=== PATIENT | female | born 1955 | race Caucasian/White ===

== ENCOUNTER 2018-02-02 09:06 | Outpatient (REF) | payer BC, SELFPAY ==
[2018-02-02 19:39] LABS: HCT 36.5 % (36.0-46.0); HGB 11.9 g/dL (12.0-15.5); Mean Corp. HGB Concentration 32.6 g/dL (32.0-36.0); Mean Corpuscular Hemoglobin 29.7 pg (27.0-33.0); Mean Platelet Volume 10.3 fL (8.0-11.0); Platelet Count 292 x1000/uL (130-400); RBC 4.01 m/cumm (4.00-5.20); RBC Distribution Width 13.8 % (11.7-14.6); White Blood Cell Count 8.58 k/cumm (4.4-10.8)
[2018-02-02 19:52] LABS: Iron 49 ug/dL (50-175)
[2018-02-02 20:03] LABS: ALT 37 U/L (12-78); AST 20 U/L (15-37); Albumin 3.8 g/dL (3.4-5.0); Alkaline Phosphatase 102 U/L (46-116); Anion Gap 9.9 mmol/L (3-11); BUN 31 mg/dL (7-18); Bilirubin, Total 0.8 mg/dL (0.2-1.0); CO2 24.1 mmol/L (21.0-32.0); CREATININE 1.04 mg/dL (0.55-1.02); Calcium 8.6 mg/dL (8.5-10.1); Chloride 107 mmol/L (98-107); Estimated GFR 53.35 (mL/min/1.73m2); Ferritin 69 ng/mL (8-388); Glucose 109 mg/dL (70-100); Sodium 141 mmol/L (136-145); Total Protein 6.8 g/dL (6.4-8.2)
== END 2018-02-02 09:26 ==
LOC: NCHCN 09:06
PROVIDERS: PCP Nurse Practitioner Family; Visit Provider Nurse Practitioner Family
DX: D64.9 Anemia, unspecified (principal); N17.9 Acute kidney failure, unspecified
CPT/HCPCS: 80053; 85027; 82728; 83540

== ENCOUNTER 2018-05-14 10:22 | Outpatient (REF) | payer MEDICARE, BC, SELFPAY ==
[2018-05-14 18:57] LABS: Iron 58 ug/dL (50-175)
[2018-05-14 19:10] LABS: ALT 30 U/L (12-78); AST 15 U/L (15-37); Anion Gap 11.5 mmol/L (3-11); BUN 31 mg/dL (7-18); CO2 23.5 mmol/L (21.0-32.0); Calcium 8.7 mg/dL (8.5-10.1); Chloride 107 mmol/L (98-107); Estimated GFR 49.85 (mL/min/1.73m2); Ferritin 45 ng/mL (8-388); Glucose 87 mg/dL (70-100); Potassium 4.5 mmol/L (3.5-5.1); Sodium 142 mmol/L (136-145)
== END 2018-05-14 10:42 ==
LOC: NCHCN 10:22
PROVIDERS: PCP Nurse Practitioner Family; Visit Provider Nurse Practitioner Family
DX: I10 Essential (primary) hypertension (principal); E78.5 Hyperlipidemia, unspecified; D64.9 Anemia, unspecified
CPT/HCPCS: 80048; 82728; 83540; 84450; 84460

== ENCOUNTER 2018-06-01 19:46 | Outpatient (REF) | payer MEDICARE, BC, SELFPAY ==
[2018-06-01 20:24] LABS: Abs Immature Grans 0.02 k/cumm (0.0-0.09); Absolute Basophil Count 0.04 k/cumm (0.0-0.2); Absolute Eosinophil Count 0.21 k/cumm (0.0-0.7); Absolute Lymphocyte Count 1.87 k/cumm (1.2-3.4); Absolute Monocyte Count 0.55 k/cumm (0.11-0.7); Basophils % 0.5; Eosinophils % 2.8; HCT 40.1 % (36.0-46.0); HGB 13.4 g/dL (12.0-15.5); Immature Grans % 0.3; Mean Corp. HGB Concentration 33.4 g/dL (32.0-36.0); Mean Corpuscular Hemoglobin 31.1 pg (27.0-33.0); Mean Platelet Volume 10.6 fL (8.0-11.0); Monocytes % 7.3; Neutrophils % 64.1; Platelet Count 223 x1000/uL (130-400); RBC 4.31 m/cumm (4.00-5.20); RBC Distribution Width 14.1 % (11.7-14.6); White Blood Cell Count 7.49 k/cumm (4.4-10.8)
[2018-06-01 20:26] LABS: Iron 131 ug/dL (50-175); PROTEIN 17.3 mg/dL
[2018-06-01 20:31] LABS: Creatine Kinase 165 U/L (26-192)
[2018-06-01 20:32] LABS: COMMENT (LAB VIEW ONLY) 105.65 mg/dL; Prot/Crea Ur Ratio 0.16; Troponin I < 0.02 ng/mL (0.00-0.06)
[2018-06-01 20:33] LABS: Microalb ug/mg Crea 5.9 ug/mg Cr
== END 2018-06-01 20:06 ==
LOC: NCHCN 19:46
PROVIDERS: PCP Nurse Practitioner Family; Visit Provider Nurse Practitioner Family
DX: D64.9 Anemia, unspecified (principal); R07.89 Other chest pain; N17.9 Acute kidney failure, unspecified
CPT/HCPCS: 82550; 82043; 82565; 82570; 83540; 84156; 84484; 85025

== ENCOUNTER 2019-03-10 10:04 | Outpatient (REF) | payer MEDICARE, BC, SELFPAY ==
[2019-03-10 20:26] LABS: Anion Gap 15.9 mmol/L (3-11); BUN 50 mg/dL (7-18); CO2 24.1 mmol/L (21.0-32.0); CREATININE 1.49 mg/dL (0.55-1.02); Calculated LDL 102 mg/dL; Chloride 105 mmol/L (98-107); Cholesterol 179 mg/dL (50-200); Estimated GFR 35.01 (mL/min/1.73m2); Glucose 130 mg/dL (70-100); HDL Cholesterol 60 mg/dL (40-60); Potassium 4.3 mmol/L (3.5-5.1); Sodium 145 mmol/L (136-145); Triglyceride 86 mg/dL (30-150)
[2019-03-10 21:37] LABS: Hemoglobin A1C 6.4 % (4.5-6.2)
== END 2019-03-10 10:24 ==
LOC: NCHCN 10:04
PROVIDERS: PCP Nurse Practitioner Family; Visit Provider Nurse Practitioner Family
DX: E78.5 Hyperlipidemia, unspecified (principal); R73.03 Prediabetes; I10 Essential (primary) hypertension
CPT/HCPCS: 80048; 80061; 83036

== ENCOUNTER 2019-03-11 16:27 | Outpatient (REF) | payer MEDICARE, BC, SELFPAY ==
[2019-03-11 18:45] LABS: ALT 38 U/L (14-59); AST 17 U/L (15-37)
== END 2019-03-11 16:47 ==
LOC: NCHCN 16:27
PROVIDERS: PCP Nurse Practitioner Family; Visit Provider Nurse Practitioner Family
DX: E78.5 Hyperlipidemia, unspecified (principal)
CPT/HCPCS: 84450; 84460

== ENCOUNTER 2019-08-23 15:04 | Outpatient (REF) | payer MEDICARE, BC, SELFPAY ==
[2019-08-23 19:43] LABS: HCT 41.6 % (36.0-46.0); HGB 14.1 g/dL (12.0-15.5); Mean Corp. HGB Concentration 33.9 g/dL (32.0-36.0); Mean Corpuscular Hemoglobin 31.2 pg (27.0-33.0); Mean Platelet Volume 10.7 fL (8.0-11.0); Platelet Count 252 x1000/uL (130-400); RBC 4.52 m/cumm (4.00-5.20); RBC Distribution Width 12.5 % (11.7-14.6); White Blood Cell Count 7.91 k/cumm (4.4-10.8)
[2019-08-23 19:55] LABS: ALT 31 U/L (14-59); AST 21 U/L (15-37); Albumin 4.2 g/dL (3.4-5.0); Alkaline Phosphatase 99 U/L (46-116); Anion Gap 10.3 mmol/L (3-11); BUN 25 mg/dL (7-18); Bilirubin, Total 0.8 mg/dL (0.2-1.0); C-Reactive Protein 0.51 mg/dL (0.0-0.3); CO2 26.7 mmol/L (21.0-32.0); CREATININE 0.87 mg/dL (0.55-1.02); Chloride 106 mmol/L (98-107); Glucose 106 mg/dL (74-106); Potassium 3.7 mmol/L (3.5-5.1); Sodium 143 mmol/L (136-145); Total Protein 7.4 g/dL (6.4-8.2)
[2019-08-23 20:02] LABS: Hemoglobin A1C 6.2 % (3.8-5.6)
[2019-08-23 20:09] LABS: Calculated LDL 106 mg/dL (<100); Cholesterol 180 mg/dL (<200); HDL Cholesterol 56 mg/dL (40-60); Triglyceride 94 mg/dL (<150)
[2019-08-23 20:45] LABS: ESR 29 mm/hr (0-30)
[2019-08-23 21:22] LABS: Iron 107 ug/dL (50-170); Total Iron Binding Capacity 406 ug/dL (250-450); Transferrin Sat 26 % (15-50)
[2019-08-24 15:59] LABS: Rheumatoid Factor <8.6 IU/mL (<12.0)
== END 2019-08-23 15:24 ==
LOC: NCHCN 15:04
PROVIDERS: PCP Nurse Practitioner Family; Visit Provider Nurse Practitioner Family
DX: D50.9 Iron deficiency anemia, unspecified (principal); E78.5 Hyperlipidemia, unspecified; I10 Essential (primary) hypertension; R73.03 Prediabetes; M12.4 Intermittent hydrarthrosis; M12.849 Other specific arthropathies, not elsewhere classified, unspecified hand
CPT/HCPCS: 80053; 80061; 85027; 85652; 83036; 83540; 83550; 86140; 86431

== ENCOUNTER 2019-12-01 10:08 | Outpatient (REF) | payer MEDICARE, BC, SELFPAY ==
[2019-12-01 22:16] LABS: ALT 21 U/L (14-59); AST 24 U/L (15-37); Albumin 4.2 g/dL (3.4-5.0); Alkaline Phosphatase 97 U/L (46-116); Anion Gap 9.2 mmol/L (3-11); BUN 27 mg/dL (7-18); Bilirubin, Total 0.6 mg/dL (0.2-1.0); CO2 26.8 mmol/L (21.0-32.0); CREATININE 0.77 mg/dL (0.55-1.02); Calcium 9.2 mg/dL (8.5-10.1); Chloride 106 mmol/L (98-107); Glucose 133 mg/dL (74-106); Potassium 4.3 mmol/L (3.5-5.1); Sodium 142 mmol/L (136-145); Total Protein 7.1 g/dL (6.4-8.2)
== END 2019-12-01 10:28 ==
LOC: NCHCN 10:08
PROVIDERS: PCP Nurse Practitioner Family; Visit Provider Nurse Practitioner Family
DX: M12.849 Other specific arthropathies, not elsewhere classified, unspecified hand (principal); I10 Essential (primary) hypertension
CPT/HCPCS: 80053; 86141

== ENCOUNTER 2020-10-10 11:20 | Outpatient (REF) | payer MEDICARE, BC, SELFPAY ==
[2020-10-10 15:03] LABS: Hemoglobin A1C 6.2 % (<5.7)
[2020-10-10 15:38] LABS: ALT 30 U/L (14-59); AST 19 U/L (15-37); Alkaline Phosphatase 106 U/L (46-116); Anion Gap 13.5 mmol/L (3-11); BUN 47 mg/dL (7-18); Bilirubin, Total 0.8 mg/dL (0.2-1.0); CO2 22.5 mmol/L (21.0-32.0); CREATININE 1.4 mg/dL (0.55-1.02); Calcium 8.5 mg/dL (8.5-10.1); Calculated LDL 97 mg/dL (<100); Chloride 107 mmol/L (98-107); Cholesterol 169 mg/dL (<200); Estimated GFR 37.51 (mL/min/1.73m2); Glucose 117 mg/dL (74-106); HDL Cholesterol 64 mg/dL (40-60); Potassium 4.1 mmol/L (3.5-5.1); Sodium 143 mmol/L (136-145); Total Protein 6.9 g/dL (6.4-8.2); Triglyceride 41 mg/dL (<150)
== END 2020-10-10 11:21 | disposition home or self-care (01) ==
LOC: NCHCN 11:20
PROVIDERS: PCP Nurse Practitioner Family; Visit Provider Nurse Practitioner Family
DX: R73.03 Prediabetes (principal); I10 Essential (primary) hypertension; E78.5 Hyperlipidemia, unspecified
CPT/HCPCS: 80053; 80061; 83036

== ENCOUNTER 2021-01-24 16:57 | Outpatient (REF) | payer MEDICARE, BC, SELFPAY | END 2021-01-24 16:58 | disposition home or self-care (01) | LOC: NCHCN 16:57 | PROVIDERS: PCP Nurse Practitioner Family; Visit Provider Nurse Practitioner Family | DX: N39.0 Urinary tract infection, site not specified (principal) | CPT/HCPCS: 87086 ==

== ENCOUNTER 2021-02-01 21:22 | Outpatient (REF) | payer MEDICARE, BC, SELFPAY ==
[2021-02-03 13:54] LABS: COVID-19 RT-PCR UVMMC Result Negative (Negative)
== END 2021-02-01 21:23 | disposition home or self-care (01) ==
LOC: NCHCN 21:22
PROVIDERS: PCP Nurse Practitioner Family; Visit Provider Nurse Practitioner Family
DX: Z20.822 Contact with and (suspected) exposure to COVID-19 (principal); R05 Cough
CPT/HCPCS: U0003

== ENCOUNTER 2021-04-11 16:26 | Outpatient (REF) | payer MEDICARE, BC, SELFPAY ==
[2021-04-11 20:41] LABS: ALT 29 U/L (14-59); AST 18 U/L (15-37); Albumin 4.1 g/dL (3.4-5.0); Alkaline Phosphatase 95 U/L (46-116); Anion Gap 9.2 mmol/L (3-11); BUN 24 mg/dL (7-18); CO2 25.8 mmol/L (21.0-32.0); CREATININE 0.9 mg/dL (0.55-1.02); Chloride 104 mmol/L (98-107); Glucose 112 mg/dL (74-106); Potassium 4.2 mmol/L (3.5-5.1); Sodium 139 mmol/L (136-145); Total Protein 7.1 g/dL (6.4-8.2)
== END 2021-04-11 16:27 | disposition home or self-care (01) ==
LOC: NCHCN 16:26
PROVIDERS: PCP Nurse Practitioner Family; Visit Provider Nurse Practitioner Family
DX: I10 Essential (primary) hypertension (principal)
CPT/HCPCS: 80053

== ENCOUNTER 2021-06-19 13:38 | Outpatient (REF) | payer MEDICARE, BC, SELFPAY ==
[2021-06-21 14:23] LABS: COVID-19 RT-PCR UVMMC Result Negative (Negative)
== END 2021-06-19 13:39 | disposition home or self-care (01) ==
LOC: NCHCN 13:38
PROVIDERS: PCP Nurse Practitioner Family; Visit Provider Nurse Practitioner Family
DX: Z20.822 Contact with and (suspected) exposure to COVID-19 (principal)
CPT/HCPCS: U0003

== ENCOUNTER 2021-09-24 09:20 | Outpatient (CLI) | payer MEDICARE, BC, SELFPAY ==
--- NOTE | 2021-09-24 09:15 | RT.EKG_ITS ---
APPROVED REPORT Exam: Resting ECG Reason for Exam: chest pain Patient Location: O HR:73 bpm ECG Measurements Heart Rate 73 AXIS PA 165 P 69 QRSd 145 QRS -1 QT 472 T 131 QTc 521 Conclusion Sinus rhythm...normal P axis, V-rate 50- 99 Left bundle branch block...QRSd>120, broad/notched R
== END 2021-09-24 09:21 | disposition home or self-care (01) ==
LOC: DI.CARD 09:21
PROVIDERS: PCP Nurse Practitioner Family; Visit Provider Internal Medicine Cardiovascular Disease
DX: I25.2 Old myocardial infarction (principal); I50.9 Heart failure, unspecified
CPT/HCPCS: 93010

== ENCOUNTER → 2021-09-24 13:31 | Outpatient (BNVA) | payer MEDICARE, BC, SELFPAY | PROVIDERS: PCP Nurse Practitioner Family; Referring Provider Nurse Practitioner Family; Visit Provider Internal Medicine Cardiovascular Disease | DX: I50.9 Heart failure, unspecified (principal); I10 Essential (primary) hypertension; I25.10 Atherosclerotic heart disease of native coronary artery without angina pectoris; I44.7 Left bundle-branch block, unspecified; I25.2 Old myocardial infarction | CPT/HCPCS: 93005; 99203 ==

== ENCOUNTER 2022-03-13 18:48 | Outpatient (REF) | payer MEDICARE, BC, SELFPAY ==
[2022-03-13 20:54] LABS: ALT 25 U/L (14-59); AST 21 U/L (15-37); Albumin 4.1 g/dL (3.4-5.0); Alkaline Phosphatase 92 U/L (46-116); Anion Gap 11.9 mmol/L (3-11); BUN 54 mg/dL (7-18); Bilirubin, Total 0.6 mg/dL (0.2-1.0); CO2 23.1 mmol/L (21.0-32.0); CREATININE 1.1 mg/dL (0.55-1.02); Calcium 8.6 mg/dL (8.5-10.1); Calculated LDL 85 mg/dL (<100); Chloride 104 mmol/L (98-107); Cholesterol 167 mg/dL (<200); Estimated GFR 54.39 (mL/min/1.73m2); Glucose 115 mg/dL (74-106); HDL Cholesterol 74 mg/dL (40-60); Potassium 3.7 mmol/L (3.5-5.1); Sodium 139 mmol/L (136-145); Total Protein 7.5 g/dL (6.4-8.2); Triglyceride 41 mg/dL (<150)
== END 2022-03-13 18:49 | disposition home or self-care (01) ==
LOC: NCHCN 18:48
PROVIDERS: PCP Nurse Practitioner Family; Visit Provider Nurse Practitioner Family
DX: I10 Essential (primary) hypertension (principal); E78.5 Hyperlipidemia, unspecified
CPT/HCPCS: 80053; 80061

== ENCOUNTER 2022-11-06 16:21 | Outpatient (REF) | payer MEDICARE, BC, SELFPAY ==
[2022-11-06 20:20] LABS: Anion Gap 12.5 mmol/L (3-11); BUN 45 mg/dL (7-18); CO2 23.5 mmol/L (21.0-32.0); CREATININE 1.4 mg/dL (0.55-1.02); Calcium 9.3 mg/dL (8.5-10.1); Chloride 107 mmol/L (98-107); Estimated GFR 40.73 (mL/min/1.73m2); Glucose 117 mg/dL (74-106); Sodium 143 mmol/L (136-145)
== END 2022-11-06 16:22 | disposition home or self-care (01) ==
LOC: NCHCN 16:21
PROVIDERS: PCP Nurse Practitioner Family; Visit Provider Nurse Practitioner Family
DX: E11.65 Type 2 diabetes mellitus with hyperglycemia (principal); R94.4 Abnormal results of kidney function studies
CPT/HCPCS: 80048

== ENCOUNTER 2022-11-20 20:10 | Outpatient (REF) | payer MEDICARE, BC, SELFPAY ==
[2022-11-20 20:53] LABS: Anion Gap 10.4 mmol/L (3-11); BUN 34 mg/dL (7-18); CO2 25.6 mmol/L (21.0-32.0); Calcium 9.4 mg/dL (8.5-10.1); Chloride 105 mmol/L (98-107); Estimated GFR 60.98 (mL/min/1.73m2); Glucose 122 mg/dL (74-106); Potassium 4.8 mmol/L (3.5-5.1); Sodium 141 mmol/L (136-145)
[2022-11-20 20:59] LABS: COMMENT (LAB VIEW ONLY) 28.02 mg/dL; Microalb ug/mg Crea 36.8 ug/mg Cr
== END 2022-11-20 20:11 | disposition home or self-care (01) ==
LOC: NCHCN 20:10
PROVIDERS: PCP Nurse Practitioner Family; Visit Provider Nurse Practitioner Family
DX: N18.31 Chronic kidney disease, stage 3a (principal)
CPT/HCPCS: 80048; 82043; 82570

== ENCOUNTER → 2022-11-28 10:50 | Outpatient (BNVA) | payer MEDICARE, BC, SELFPAY | PROVIDERS: PCP Nurse Practitioner Family; Referring Provider Nurse Practitioner Family; Visit Provider Internal Medicine Cardiovascular Disease | DX: I25.10 Atherosclerotic heart disease of native coronary artery without angina pectoris (principal); I44.7 Left bundle-branch block, unspecified | CPT/HCPCS: 99213 ==

== ENCOUNTER 2023-02-04 11:52 | Outpatient (REF) | payer MEDICARE, BC, SELFPAY ==
[2023-02-04 20:00] LABS: HCT 39.1 % (36.0-46.0); MCH 30.8 pg (27.0-33.0); MCHC 33.2 % (32.0-36.0); MCV 93 fL (80-95); MPV 10.4 fL (8.0-11.0); Platelet Count 248 10^3/uL (130-400); RBC 4.22 10^6/uL (3.93-5.22); RDW 12.2 % (11.7-14.6); RDW-SD 41.8 fL; WBC 6.69 10^3/uL (4.4-10.8)
[2023-02-04 20:15] LABS: Anion Gap 9.3 mmol/L (3-11); BUN 26 mg/dL (7-18); CO2 24.7 mmol/L (21.0-32.0); CREATININE 0.9 mg/dL (0.55-1.02); Calcium 9.4 mg/dL (8.5-10.1); Chloride 105 mmol/L (98-107); Glucose 100 mg/dL (74-106); NT-proBNP 1782 pg/mL (<300); Potassium 4.1 mmol/L (3.5-5.1); Sodium 139 mmol/L (136-145)
[2023-02-05 14:06] LABS: ESR (LRH) 15 mm/hr
== END 2023-02-04 11:53 | disposition home or self-care (01) ==
LOC: NCHCN 11:52
PROVIDERS: PCP Nurse Practitioner Family; Visit Provider Nurse Practitioner Family
DX: R60.0 Localized edema (principal); M60.9 Myositis, unspecified; N18.31 Chronic kidney disease, stage 3a
CPT/HCPCS: 80048; 85027; 85652; 83880; 86140

== ENCOUNTER 2023-02-05 15:23 | Outpatient (REF) | payer MEDICARE, BC, SELFPAY ==
[2023-02-05 21:16] LABS: ALT 29 U/L (14-59); AST 18 U/L (15-37); Albumin 3.9 g/dL (3.4-5.0); Alkaline Phosphatase 103 U/L (46-116); Anion Gap 8.3 mmol/L (3-11); BUN 33 mg/dL (7-18); Bilirubin, Total 0.8 mg/dL (0.2-1.0); CO2 25.7 mmol/L (21.0-32.0); CREATININE 0.9 mg/dL (0.55-1.02); Calcium 9.8 mg/dL (8.5-10.1); Chloride 104 mmol/L (98-107); Glucose 105 mg/dL (74-106); Sodium 138 mmol/L (136-145); Total Protein 7.2 g/dL (6.4-8.2); Troponin I < 50 ng/L (<or=60)
[2023-02-05 21:24] LABS: COMMENT (LAB VIEW ONLY) 68.64 mg/dL; Microalb ug/mg Crea 56.2 ug/mg Cr
== END 2023-02-05 15:24 | disposition home or self-care (01) ==
LOC: NCHCN 15:23
PROVIDERS: PCP Nurse Practitioner Family; Visit Provider Nurse Practitioner Family
DX: R06.02 Shortness of breath (principal); R60.0 Localized edema
CPT/HCPCS: 80053; 82043; 82570; 84484

== ENCOUNTER 2023-05-21 16:29 | Outpatient (REF) | payer MEDICARE, BC, SELFPAY ==
[2023-05-21 20:25] LABS: Calculated LDL 94 mg/dL (<100); Cholesterol 165 mg/dL (<200); HDL Cholesterol 60 mg/dL (40-60); Triglyceride 59 mg/dL (<150)
--- OUTSIDE RECORDS SUMMARY | 2023-05-23 10:48 | XMS_ITS | Continuity of Care Document ---
Author Name Unknown Organization [facility] Address [address] [place] [address] Care Team Providers Care Rn Er Name Role Phone Mary Gaspar Primary Care Physician [phone] [facility] Date(s): 02/18/23 - 02/18/[address] [address] Discharge Disposition: Home or Self Care Attending Physician: Mary Gaspar SVP [employer] SAL[employer] Admitting Physician: Mary Gaspar [employer]P [employer] Referring Physician: Mary Gaspar SVP [employer] Allergies, Adverse Reactions, Alerts Substance Reaction Severity Status atenolol Unknown Active amoxicillin-clavulanate Unknown Acti ve lisinopril Unknown Active thiazide diuretics Unknown Active Assessment and Plan Future Appointments Immunizations Given and Recorded Vaccine Date Status Refusal Reason SARS-CoV-2 (COVID-19) mRNA-1273 vaccine 08/29/20 R ecorded SARS-CoV-2 (COVID-19) mRNA-1273 vaccine 07/13/20 R ecorded tetanus/diphth/pertuss (Tdap) adult/adol 01/15/07 Recorded Medications !-DuoNeb 3 mL, Inhale, QID RT, 0 Refill(s) Start Date: 05/05/22 Status: Ordered albuterol 90 mcg/inh aerosol inhaler 2.5 mg, Inhale, every 2 hr RT, PRN Air Hunger, 0 Refill(s) Start Date: 05/05/22 Status: Ordered amLODIPine 5 mg oral tablet 5 mg = 1 tab, Oral, Daily, 0 Refill(s) Start Date: 05/05/22 Status: Ordered aspirin 81 mg oral delayed release tablet 81 mg = 1 tab, Oral, Daily, 0 Refill(s) Start Date: 10/12/21 Status: Ordered budesonide 0.5 mg/2 mL inhalation suspension 0.5 mg = 2 mL, NEB, BID RT, 0 Refill(s) Start Date: 05/05/22 Status: Ordered Co Q-10 100 mg =, Oral, Daily, 0 Refill(s) Start Date: 10/12/21 Status: Ordered enoxaparin 40 mg/0.4 mL injectable solution 40 mg = 0.4 mL, Subcutaneous, every night at bedtime, 0 Refill(s) Start Date: 05/05/22 Status: Ordered insulin lispro 100 units/mL injectable solution Sensitive Scale, Subcutaneous, QID(ACHS), 0 Refill(s) Start Date: 05/05/22 Status: Ordered ipratropium-albuterol 0.5 mg-2.5 mg/3 mL inhalation solution 3 mL, Inhale, every 4 hr RT, PRN wheezing, 0 Refill(s) Start Date: 05/05/22 Status: Ordered Lantus 100 units/mL subcutaneous solution 10 units =, Subcutaneous, every morning, 0 Refill(s) Start Date: 05/05/22 Status: Ordered LORazepam 0.5 mg oral tablet 0.5 mg = 1 tab, Oral, QID, PRN anxiety, 0 Refill(s) Start Date: 05/05/22 Status: Ordered potassium chloride 20 mEq oral tablet, extended release 20 mEq = 1 tab, Oral, BID, 0 Refill(s) Start Date: 05/05/22 Status: Ordered rosuvastatin 10 mg oral tablet 10 mg = 1 tab, Oral, every night at bedtime, 0 Refill(s) Start Date: 10/12/21 Status: Ordered Senna-Time 8.6 mg oral tablet 17.2 mg = 2 tab, Oral, every night at bedtime, PRN as needed for constipation, 0 Refill(s) Start Date: 10/12/21 Status: Ordered sertraline 25 mg oral tablet 25 mg = 1 tab, Oral, Daily, # 90 tab, 0 Refill(s) Start Date: 05/01/22 Status: Ordered Tamiflu 30 mg oral capsule 30 mg = 1 cap, Oral, Daily, 0 Refill(s) Start Date: 05/05/22 Status: Ordered Vitamin D with Minerals oral tablet 2 tab, Oral, Daily, 0 Refill(s) Start Date: 10/12/21 Status: Ordered Vitamin D3 2000 intl units oral capsule 50 mcg 1 cap, Oral, Daily, # 60 cap, 0 Refill(s) Start Date: 05/01/22 Status: Ordered zolpidem 10 mg oral tablet 10 mg = 1 tab, Oral, every night at bedtime, PRN as needed for sleep, 0 Refill(s) Start Date: 10/12/21 Status: Ordered Problem List Condition Confirmation Course Effective Dates Status H ealth Status Informant Abnormal cytology findings Confirmed Active Anxiety Confirmed 01/13/20 Active CTS (carpal tunnel syndrome) Confirmed Active Diverticular disease of colon Confirmed 01/13/20 Active Gastroesophageal reflux disease Confirmed 01/13/20 Active H/O: poliomyelitis Confirmed 01/13/20 Active Hyperlipidemia Confirmed 01/13/20 Active Hypertensive disorder Confirmed 01/13/20 Active 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 Confirmed 01/13/20 Active Cubital tunnel syndrome Confirmed Active Long-term current use of drug therapy Confirmed Active Low back pain Confirmed Active Muscle weakness Confirmed Active Old myocardial infarction Confirmed 01/13/20 Active Pain in limb Confirmed Active Pain in right arm Confirmed Active 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 Spasm Confirmed Active Procedures Procedure Date Related Diagnosis Body Site Status Colonoscopy through stoma; w ith biopsy, single or multiple 12/13/20 Completed Epiglottidectomy 12/13/20 Complete d gastritis, intact Manolo fundoplication 12/12/20 Completed Repair of vaginal wall prola pse (procedure) 2018 Completed Hernia repair (procedure) 2017 Completed Excision, excessive skin and subcutaneous tissue (includes lipectomy), abdomen (eg, abdominoplasty) (includes umbilical transposition and fascial plication) (List separately in addition to code for primary procedure) 05/05/96 Completed Surgical treatment of ectopi c ; abdominal 05/05/81 C ompleted Anesthesia for cardiac tisha terization including coronary angiography and ventriculography (not to include [place]-Maxi catheter) Completed 1@ [facility] 2Hiatal 2017 @ Social History Social History Type Response Tobacco Current everyday tob acco user Tobacco Use:. 1 pack per day per day. Sex Female Patient Care team information Care Team Personnel Name: HubertMary SVP [employer] SAL[employer] Position: PowerChart View Only Member Role: Primary Care Physician Address: Address: [address] [place] [address]- Care Team Related Persons Name: NATHAN DUTTA Address: Home [address] [place] [phone]
--- OUTSIDE RECORDS SUMMARY | 2023-05-23 10:48 | XMS_ITS | Continuity of Care Document ---
Author Name Unknown Organization [facility] Address [address] [place] [address] Care Team Providers Care Alternative Dispute Resolution Mediator Name Role Phone Mary Gaspar Primary Care Physician [phone] [facility]counter [facility] Date(s): 03/15/22 - 03/15/[address] [address] Discharge Disposition: Home or Self Care Attending Physician: Mary Gaspar DIRECTOR WORKFORCE MANAGEMENT Admitting Physician: Mary Gaspar DIRECTOR WORKFORCE MANAGEMENT Referring Physician: Mary Gaspar DIRECTOR WORKFORCE MANAGEMENT Allergies, Adverse Reactions, Alerts Substance Reaction Severity Status atenolol Unknown Active amoxicillin-clavulanate Unknown Acti ve lisinopril Unknown Active thiazide diuretics Unknown Active Immunizations Given and Recorded Vaccine Date Status Refusal Reason SARS-CoV-2 (COVID-19) mRNA-1273 vaccine 08/29/20 R ecorded SARS-CoV-2 (COVID-19) mRNA-1273 vaccine 07/13/20 R ecorded tetanus/diphth/pertuss (Tdap) adult/adol 01/15/07 Recorded Medications aspirin 81 mg oral delayed release tablet 0 Refill(s) Start Date: 10/12/21 Status: Ordered Co Q-10 0 Refill(s) Start Date: 10/12/21 Status: Ordered Collagen Plus Vitamin C Collagen Plus Vitamin C, Take 3 tabs in am & 3 tabs in pm Start Date: 11/09/21 Status: Ordered cyclobenzaprine 10 mg oral tablet 10 mg = 1 tab, Oral, TID Start Date: 11/09/21 Status: Ordered losartan 100 mg oral tablet 0 Refill(s) Start Date: 10/12/21 Status: Ordered multivitamin adult, oral tablet 0 Refill(s) Start Date: 10/12/21 Status: Ordered Protonix 40 mg oral delayed release tablet 40 mg = 1 tab, Oral, Daily, 0 Refill(s) Start Date: 10/12/21 Status: Ordered rosuvastatin 10 mg oral tablet 0 Refill(s) Start Date: 10/12/21 Status: Ordered Senna-Time 8.6 mg oral tablet 0 Refill(s) Start Date: 10/12/21 Status: Ordered sertraline 50 mg oral tablet 0 Refill(s) Start Date: 10/12/21 Status: Ordered Vitamin D with Minerals oral tablet 0 Refill(s) Start Date: 10/12/21 Status: Ordered zolpidem 10 mg oral tablet 0 Refill(s) Start Date: 10/12/21 Status: Ordered [...] coronary angiography and ventriculography (not to include [place]-Maxi catheter) Completed 1[place] [facility] [place] @ Social History Social History Type Response Sex Female Patient Care team information Care Team Personnel Name: Mary Gaspar DIRECTOR WORKFORCE MANAGEMENT Position: PowerChart View Only Member Role: Primary Care Physician Address: Address: [address] [place] [id number]- Care Team Related Persons Name: NATHAN DUTTA Address: Home [address] [place] [phone]
--- OUTSIDE RECORDS SUMMARY | 2023-05-23 10:48 | XMS_ITS | Continuity of Care Document ---
Author Name Unknown Organization [facility] Address [address] [place] [address] Care Team Providers Care Quality Assurance Representative Name Role Phone Mary Gaspar Primary Care Physician [phone] Encounter [facility] Date(s): 11/07/22 - 11/07/[address] [address] Discharge Disposition: Home or Self Care Attending Physician: Mary Gaspar OVEN BAKER Admitting Physician: Mary Gaspar OVEN BAKER Referring Physician: Mary Gaspar OVEN BAKER Allergies, Adverse Reactions, Alerts Substance Reaction Severity [...] coronary angiography and ventriculography (not to include [place]-Maxi catheter) Completed 1@ [facility] 2Hiatal 2017 @ Social History Social History Type Response Tobacco Current everyday tob acco user Tobacco Use:. 1 pack per day per day. Sex Female Patient Care team information Care Team Personnel Name: Chute, Mary H OVEN BAKER Position: PowerChart View Only Member Role: Primary Care Physician Address: Address: [address] [place] [id number]- Care Team Related Persons Name: NATHAN DUTTA Address: Home [address] [place] [phone]
--- OUTSIDE RECORDS SUMMARY | 2023-05-23 10:48 | XMS_ITS | Continuity of Care Document ---
Author Name Unknown Organization [facility] Address [address] [place] [address] Encounter [facility] [id number] Date(s): 03/14/22 - 03/14/22 [facility] [address] [place], [place] [address] Encounter Diagnosis History of right hip replacement(Discharge Diagnosis) - 03/14/22 Discharge Disposition: Home or Self Care Attending Physician: Donal Leos DO Allergies, Adverse Reactions, Alerts No Known Medication Allergies Assessment and Plan Future Scheduled Tests Radiology* XR Hip 2-3 Views w/AP Pelvis Left 02/22/22 Functional Status 03/14/22 Other exposure to Infectious Disease Non e Medications !-Aspir 81 oral delayed release tablet 81 mg = 1 tab, Oral, Daily, # 30 tab, 0 Refill(s) Start Date: 03/14/22 Status: Ordered CeleBREX 100 mg oral capsule 100 mg = 1 cap, Oral, BID, # 60 cap, 0 Refill(s) Start Date: 03/14/22 Status: Ordered Co-Q10 50 mg oral capsule 50 mg = 1 cap, Oral, Daily, # 30 cap, 0 Refill(s) Start Date: 03/14/22 Status: Ordered Hydrolyzed Ultra Collagen Plus C 10 mg-1000 mg oral tablet 3 tab, Oral, BID, on an empty stomach, # 90 tab, 0 Refill(s) Start Date: 03/14/22 Status: Ordered losartan 50 mg oral tablet 50 mg = 1 tab, Oral, Daily, # 30 tab, 0 Refill(s) Start Date: 03/14/22 Status: Ordered MiraLax oral powder for reconstitution 17 g, Oral, Daily, dissolve in water before taking, # 255 g, 0 Refill(s) Start Date: 03/14/22 Status: Ordered multivitamin adult, oral tablet 1 tab, Oral, Daily, # 30 tab, 0 Refill(s) Start Date: 03/14/22 Status: Ordered pantoprazole 40 mg oral delayed release tablet 40 mg = 1 tab, Oral, BID, # 60 tab, 0 Refill(s) Start Date: 03/14/22 Status: Ordered rosuvastatin 10 mg oral capsule 10 mg = 1 cap, Oral, Daily, # 30 cap, 0 Refill(s) Start Date: 03/14/22 Status: Ordered senna 8.6 mg oral tablet 17.2 mg = 2 tab, Oral, every day at bedtime, PRN as needed for constipation, # 20 tab, 0 Refill(s) Start Date: 03/14/22 Status: Ordered sertraline 25 mg oral tablet 25 mg = 1 tab, Oral, Daily, # 30 tab, 0 Refill(s) Start Date: 03/14/22 Status: Ordered triamterene-hydrochlorothiazide 37.5 mg-25 mg oral tablet 1 tab, Oral, Daily, # 30 tab, 0 Refill(s) Start Date: 03/14/22 Status: Ordered Tylenol Extra Strength 500 mg oral powder 2 packets, Oral, every 6 hr, PRN as needed for fever, # 12 packets, 0 Refill(s) Start Date: 03/14/22 Status: Ordered Vitamin D with Minerals oral tablet 1 tab, Oral, Daily, # 30 tab, 0 Refill(s) Start Date: 03/14/22 Status: Ordered zolpidem 5 mg oral tablet 5 mg = 1 tab, Oral, every day at bedtime, PRN as needed for sleep, 0 Refill(s) Start Date: 03/14/22 Status: Ordered Problem List Condition Confirmation Course Effective Dates Status H ealth Status Informant Arthritis Confirmed Active Hypercholesterolemia Confirmed Active HTN (hypertension) Confirmed Active Procedures Procedure Date Related Diagnosis Body Site Status Arthroplasty of right hip joint 12/03/21 Completed Vital Signs Most recent to oldest [Reference Range]: 1 Blood Pressure [90-140/60-90 mmHg] 160/7 8mmHg *HI* (03/14/22 11:38 AM) Weight 49.90 kg (03/14/22 11:38 AM) Weight Measured (lbs) 110.011 lb (03/14/22 11:38 AM) Height 154.94 cm (03/14/22 11:38 AM) Height/Length Measured (inches) 61 inch (03/14/22 11:38 AM) BSA Measured 1.47 m2 (03/14/22 11:38 AM) Body Mass Index 20.79 kg/m2 (03/14/22 11:38 AM) Social History Social History Type Response Tobacco Current everyday tob acco user Tobacco Use:. Sex Unknown Physician Outpatient Note * Donal Leos, DO: PERFORM Event Display: Office Clinic Note Physician Authored Date: [id number] LUZMARIA CHANDU Aden :1955 Age:67 years Sex:Female Visit Date:03/14/2022 History of Present Illness 3 and half months status post right total hip??that was struggling at the 6-week postop check. 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 ??She states she is finally doingbetter. ??She is now able to??walk??without an assistive device. ??She says she is really noticed im provement over the past 3 weeks. Physical Exam Vitals & Measurements BP:??160/78?? SpO2:??96%?? HT:??154.94??cm?? WT:??49.90??kg?? BMI:??20.79?? Pain Score:??5?? BSA:??1.47?? Care wound nurseOn physical exam she ambulates in the office with a normal gait unassisted accompanied by a friend.?? Healed. ??No signs of infection. ??No femoral sensory nerve palsy.?? Motion free and easy and stable.?? X-rays look good on the [place] system. ??No signs??loosening or settling or periprosthetic fracture. Assessment/Plan 1.??History of right hip replacement??Z96.641 I think this is??coming along reasonably well. ??She certainly is having a more prolonged??and difficult recovery than most.?? Nothing looks bad on physical exam or??on x-ray.?? I would attribute most of this to the post polio syndrome.?? Nevertheless she is improving. ??I have encouraged her to try to increase her activity is much as she will tolerate. ??We spent approximately 20 minutes together with 15 of those 20 minutes direct [id number] counseling discussing this. Problem List/Past Medical History Ongoing Arthritis HTN (hypertension) Hypercholesterolemia Historical No qualifying data Medications !-Aspir 81 oral delayed release tablet, 81 mg= 1 tab, Oral, Daily CeleBREX 100 mg oral capsule, 100 mg= 1 cap, Oral, BID Co-Q10 50 mg oral capsule, 50 mg= 1 cap, Oral, Daily Hydrolyzed Ultra Collagen Plus C 10 mg-1000 mg oral tablet, 3 tab, Oral, BID losartan 50 mg oral tablet, 50 mg= 1 tab, Oral, Daily MiraLax oral powder for reconstitution, 17 g, Oral, Daily multivitamin adult, oral tablet, 1 tab, Oral, Daily pantoprazole 40 mg oral delayed release tablet, 40 mg= 1 tab, Oral, BID rosuvastatin 10 mg oral capsule, 10 mg= 1 cap, Oral, Daily senna 8.6 mg oral tablet, 17.2 mg= 2 tab, Oral, every night at bedtime, PRN sertraline 25 mg oral tablet, 25 mg= 1 tab, Oral, Daily triamterene-hydrochlorothiazide 37.5 mg-25 mg oral tablet, 1 tab, Oral, Daily Tylenol Extra Strength 500 mg oral powder, 2 packets, Oral, every 6 hr, PRN Vitamin D with Minerals oral tablet, 1 tab, Oral, Daily zolpidem 5 mg oral tablet, 5 mg= 1 tab, Oral, every night at bedtime, PRN Allergies No Known Medication Allergies Electronically Signed on 03/14/22 12:10 PM Donal Leos DO
--- OUTSIDE RECORDS SUMMARY | 2023-05-23 10:48 | XMS_ITS | Continuity of Care Document ---
Author Name Unknown Organization [facility] Address [address] [place] [address] Encounter [facility] [id number] Date(s): 02/05/23 - 02/05/23 [facility] [address] [place] [address]- Discharge Disposition: Home or Self Care Attending Physician: CAREY MTZ NP Admitting Physician: CAREY MTZ NP Referring Physician: CAREY MTZ NP Allergies, Adverse Reactions, Alerts No Known Medication Allergies Assessment and Plan Future Scheduled Tests Radiology* XR Hip 2-3 Views w/AP Pelvis Left 02/22/22 Medications !-Aspir 81 oral delayed release tablet [...] Arthroplasty of right hip joint 12/03/21 Completed Results Laboratory List Name Date Sedimentation Rate (ESR) 02/04/23 Most recent to oldest [Reference Range]: 1 ESR, [place] [0-20 mm/hr] 15 mm/hr *NA* (02/04/23 10:46 AM) Social History Social History Type Response Tobacco Current everyday tob acco user Tobacco Use:. Sex Unknown
--- OUTSIDE RECORDS SUMMARY | 2023-05-23 10:48 | XMS_ITS | Continuity of Care Document ---
Author Name Unknown Organization [facility] Address [address] [place] [address] Care Team Providers Care Facialist Name Role Phone WilfridGris riveraMary Lorna Primary Care Physician [phone] [facility] Date[facility] 04/30/22 - 05/05/22 [facility] [address] [place] [address] us Encounter Diagnosis Pneumonia(Discharge Diagnosis) - 05/01/22 Respiratory failure(Discharge Diagnosis) - 05/01/22 Acute kidney injury(Discharge Diagnosis) - 04/30/22 Dehydration, severe(Discharge Diagnosis) - 04/30/22 Hypoxia(Discharge Diagnosis) - 04/30/22 Anxiety(Discharge Diagnosis) - 05/01/22 Hypertensive disorder(Discharge Diagnosis) - 05/01/22 Elevated blood sugar(Discharge Diagnosis) - 05/03/22 Discharge Disposition: Discharge/Transfer to [facility] as Inpt Attending Physician: Annmarie Vargas NP Admitting Physician: Annmarie Vargas [employer]IN [employer]DER Allergies, Adverse Reactions, Alerts Substance Reaction Severity Status atenolol Unknown Active amoxicillin-clavulanate Unknown Acti ve lisinopril Unknown Active thiazide diuretics Unknown Active Assessment and Plan Diagnostic Tests Pending * 1,1-Zyvq-P-Glucan (Fungitell), S RENO 05/04/22 * Histoplasma Ab, S RENO 05/04/22 * Cryptococcus Ag Titer RENO 05/04/22 * Aspergillus (Galactomannan) Ag, S RENO 05/04/22 * ANCA Vasculitis Panel, S RENO 05/04/22 Functional Status 05/05/22 Breakfast Percent 100 05/04/22 Activity Status ADL Toileting at bedside 05/03/22 ADLs Moderate assistance Personal Care Provided Gown change, Oral care, Partial bath, Lizeth care, Underpad change 05/02/22 Assistive Device None 05/01/22 Living Environment No Living Environmen t Information Available Lives In Multilevel home Lives With Spouse Living Situation Home independently Home Barriers None Patient's Responsibilities Housework, Laundry, Meal preparation, Personal ADL, Shopping Number of Stairs Inside 26 Number of Stairs Outside 4 04/30/22 Family Member Travel History Last travel within 7 days Recent Travel History Last travel within 7 days Other exposure to Infectious Disease COV ID-19 Symptoms Present Immunizations Given and Recorded Vaccine Date Status [...] coronary angiography and ventriculography (not to include [place]-Maxi catheter) Completed @ [facility] 2Hiatal 2017 @ Results Laboratory List Name Date Glucose POCT 05/05/22 Glucose POCT 05/05/22 Basic Metabolic Panel 05/05/22 CBC w/o Diff 05/05/22 Glucose POCT 05/04/22 SARS-CoV-2 (COVID-19) RNA (ID Now) 05/04 Basic Metabolic Panel 05/04/22 C-Reactive Protein High Sensitivity (CRP High Sensitivity (CV Risk)) 05/04/22 CBC w/o Diff 05/04/22 NT- Pro BNP 05/04/22 Blood Gas Arterial (ABG) 05/03/22 Basic Metabolic Panel 05/03/22 C-Reactive Protein High Sensitivity (CRP High Sensitivity (CV Risk)) 05/03/22 CBC w/o Diff 05/03/22 Clostridium Difficile (C Diff) 05/02/22 Fecal Bacterial Pathogens by PCR [facility] Fecal WBC 05/02/22 Ova/Parasite Exam [facility] 05/02/22 C-Reactive Protein High Sensitivity (CRP High Sensitivity (CV Risk)) 05/02/22 NT- Pro BNP 05/02/22 D-Dimer 05/01/22 Troponin-I 05/01/22 Influenza A/B (ID NOW) 05/01/22 Lactic Acid 05/01/22 Urinalysis Microscopic 05/01/22 Urinalysis with Micro if Indicated and C ulture if Indicated 05/01/22 Comprehensive Metabolic Panel (CMP) 04/05 11/23 Magnesium Level 04/30/22 SARS-CoV-2 (COVID-19) RNA (ID Now) 04/30 .Manual Differential (NCTY) 04/30/22 Comprehensive Metabolic Panel 04/30/22 NT- Pro BNP 04/30/22 Most recent to oldest [Reference Range]: 1 2 3 pCO2 Art [33-47 mmHg] 31 mmHg *LOW* (05/03/22 8:57 AM) pH Art [7.35-7.45 pH unit(s)] 7.40 pH unit(s) (05/03/22 8:57 AM) pO2 Art [80-100 mmHg] 70 mmHg *LOW* (05/03/22 8:57 AM) WBC [5.0-10.0 x10^3/mcL] 10.1 x10^3/mcL *HI* (05/05/22 7:25 AM) 10.9 x10^3/mcL *HI* (05/04/22 7:30 AM) 10.4 x10^3/mcL *HI* (05/03/22 6:14 AM) RBC [4.1-5.3 x10^6/mcL] 3.5 x10^6/mcL *LOW* (05/05/22 7:25 AM) 3.4 x10^6/mcL *LOW* (05/04/22 7:30 AM) 3.5 x10^6/mcL *LOW* (05/03/22 6:14 AM) Segs Man [40-75 %] 78 % *HI* (04/30/22 4:18 PM) Lymph Man [20-50 %] 11 % *LOW* (04/30/22 4:18 PM) [place] Man 5 % *NA* (04/30/22 4:18 PM) Eos Man 1 % *NA* (04/30/22 4:18 PM) BUN [7-18 mg/dL] 50 mg/dL *HI* (05/05/22 7:25 AM) 47 mg/dL *HI* (05/04/22 7:30 AM) 39 mg/dL *HI* (05/03/22 6:14 AM) Glucose POC [74-106 mg/dL] 252 mg/dL *HI* (05/05/22 11:28 AM) 197 mg/dL *HI* (05/05/22 7:37 AM) 263 mg/dL *HI* (05/04/22 8:22 PM) UA Color Yellow (05/01/22 1:15 AM) UA WBC [0-3] 0-3 (05/01/22 1:15 AM) Glucose Level [74-106 mg/dL] 196 mg/dL *HI* (05/05/22 7:25 AM) 182 mg/dL *HI* (05/04/22 7:30 AM) 219 mg/dL *HI* (05/03/22 6:14 AM) Potassium Level [3.5-5.1 mmol/L] 3.3 mmol/L *LOW* (05/05/22 7:25 AM) 3.9 mmol/L (05/04/22 7:30 AM) 3.1 mmol/L *LOW* (05/03/22 6:14 AM) MCV [80.0-96.0] 90.4 (05/05/22 7:25 AM) 91.0 (05/04/22 7:30 AM) 88.8 (05/03/22 6:14 AM) UA Urobilinogen Normal (05/01/22 1:15 AM) RBC Morph Normal (04/30/22 4:18 PM) UA Hyal Cast Rare /HPF (05/01/22 1:15 AM) UA Bili [Negative] Negative (05/01/22 1:15 AM) UA Ketones Negative (05/01/22 1:15 AM) AST [15-37 unit/L] 20 unit/L (04/30/22 10:20 PM) 26 unit/L (04/30/22 4:18 PM) ALT [14-59 unit/L] 14 unit/L (04/30/22 10:20 PM) 20 unit/L (04/30/22 4:18 PM) MCHC [31.0-35.0 g/dL] 34.2 g/dL (05/05/22 7:25 AM) 33.9 g/dL (05/04/22 7:30 AM) 34.8 g/dL (05/03/22 6:14 AM) Troponin-I [0.0-51.4 pg/mL] 14.5 pg/mL (05/01/22 5:49 PM) Sodium Level [136-145 mmol/L] 142 mmol/L (05/05/22 7:25 AM) 143 mmol/L (05/04/22 7:30 AM) 141 mmol/L (05/03/22 6:14 AM) UA RBC [0-2] 0-2 (05/01/22 1:15 AM) UA Leuk Est Negative (05/01/22 1:15 AM) UA Nitrite Negative (05/01/22 1:15 AM) UA Glucose [Negative] Negative (05/01/22 1:15 AM) Hct [37.0-47.0 %] 31.9 % *LOW* (05/05/22 7:25 AM) 31.3 % *LOW* (05/04/22 7:30 AM) 31.0 % *LOW* (05/03/22 6:14 AM) UA Bacteria Rare /HPF (05/01/22 1:15 AM) Calcium Level [8.5-10.1 mg/dL] 8.1 mg/dL *LOW* (05/05/22 7:25 AM) 8.7 mg/dL (05/04/22 7:30 AM) 8.6 mg/dL (05/03/22 6:14 AM) Albumin Level [3.4-5.0 g/dL] 2.8 g/dL *LOW* (04/30/22 10:20 PM) 3.3 g/dL *LOW* (04/30/22 4:18 PM) Protein Total [6.4-8.2 g/dL] 6.4 g/dL (04/30/22 10:20 PM) 7.9 g/dL (04/30/22 4:18 PM) UA Protein 1+ *ABN* (05/01/22 1:15 AM) MCH [26.0-32.0 pg] 30.9 pg (05/05/22 7:25 AM) 30.8 pg (05/04/22 7:30 AM) 30.9 pg (05/03/22 6:14 AM) Magnesium Level [1.8-2.4 mg/dL] 1.8 mg/dL (04/30/22 10:20 PM) Bilirubin Total [0.2-1.0 mg/dL] 0.5 mg/dL (04/30/22 10:20 PM) 0.7 mg/dL (04/30/22 4:18 PM) Hgb [12.0-16.0 g/dL] 10.9 g/dL *LOW* (05/05/22 7:25 AM) 10.6 g/dL *LOW* (05/04/22 7:30 AM) 10.8 g/dL *LOW* (05/03/22 6:14 AM) FiO2 Arterial 90 *NA* (05/03/22 8:57 AM) Alk Phos [46-146 unit/L] 67 unit/L (04/30/22 10:20 PM) 83 unit/L (04/30/22 4:18 PM) UA Blood 1+ *ABN* (05/01/22 1:15 AM) CO2 Total Arterial 20 mmol/L *NA* (05/03/22 8:57 AM) UA Mucous None Seen /HPF (05/01/22 1:15 AM) Band Man [0-5 %] 3 % (04/30/22 4:18 PM) UA Spec Grav 1.020 *NA* (05/01/22 1:15 AM) Platelets [130-450 x10^3/mcL] 302 x10^3/mcL (05/05/22 7:25 AM) 271 x10^3/mcL (05/04/22 7:30 AM) 221 x10^3/mcL (05/03/22 6:14 AM) CO2 [21-32 mmol/L] 26 mmol/L (05/05/22 7:25 AM) 23 mmol/L (05/04/22 7:30 AM) 20 mmol/L *LOW* (05/03/22 6:14 AM) Lactic Acid Lvl [0.7-2.1 mmol/L] 0.8 mmol/L (05/01/22 1:30 AM) UA Squam Epithelial [None Seen] Rare (05/01/22 1:15 AM) UA pH 5.5 *NA* (05/01/22 1:15 AM) eGFR Non-AA [>=60] 46 *LOW* (05/05/22 7:25 AM) 45 *LOW* (05/04/22 7:30 AM) 40 *LOW* (05/03/22 6:14 AM) eGFR AA [>=60] 46 *LOW* (05/05/22 7:25 AM) 45 *LOW* (05/04/22 7:30 AM) 40 *LOW* (05/03/22 6:14 AM) Base Excess Arterial -4.6 mmol/L *NA* (05/03/22 8:57 AM) UA Appear Hazy *ABN* (05/01/22 1:15 AM) NT-proBNP [0-125 pg/mL] 5653 pg/mL *HI* (05/04/22 7:30 AM) 5649 pg/mL *HI* (05/02/22 6:22 AM) 675 pg/mL *HI* (04/30/22 4:18 PM) Chloride Level [98-107 mmol/L] 105 mmol/L (05/05/22 7:25 AM) 109 mmol/L *HI* (05/04/22 7:30 AM) 109 mmol/L *HI* (05/03/22 6:14 AM) RDW-CV [11.7-17.0 %] 12.6 % (05/05/22 7:25 AM) 12.9 % (05/04/22 7:30 AM) 12.6 % (05/03/22 6:14 AM) Wesley Test Art Pass (05/03/22 8:57 AM) CRP High Sens [0.00-3.00 mg/L] 67.18 mg/L *HI* (05/04/22 7:30 AM) 182.71 mg/L *HI* (05/03/22 6:14 AM) 281.68 mg/L *HI* (05/02/22 6:22 AM) Puncture Site Right Radial (05/03/22 8:57 AM) UA Culture Ind?. Not Indicated (05/01/22 1:15 AM) Abs Neut Man 8.6 x10^3/mcL *NA* (04/30/22 4:18 PM) Immature Cells 2 *NA* (04/30/22 4:18 PM) [place]-Art Gradient 63 % *NA* (05/03/22 8:57 AM) Clostridium Difficile Toxin [Negative] Negative (05/02/22 2:16 PM) Influenza A -IDNOW Detected *ABN* (05/01/22 1:42 PM) Influenza B -IDNOW Not Detected (05/01/22 1:42 PM) Creatinine Level [0.55-1.02 mg/dL] 1.26 mg/dL *HI* (05/05/22 7:25 AM) 1.28 mg/dL *HI* (05/04/22 7:30 AM) 1.42 mg/dL *HI* (05/03/22 6:14 AM) HCO3 Art 19 mmol/L *NA* (05/03/22 8:57 AM) SARS-CoV-2 (COVID-19) RNA (ID Now) [Not Detected] Not Detected (05/04/22 3:06 PM) Not Detected (04/30/22 4:37 PM) Salmonella PCR [facility] [Negative] Negative *NA* (05/02/22 2:16 PM) Shigella/Enteroinvasive E. coli [facility] [Negative] Negative *NA* (05/02/22 2:16 PM) HN LAB CAMPYLOBACTER PCR [facility] [Negative] Negative *NA* (05/02/22 2:16 PM) Shiga Toxin PCR [facility] [Negative] Negative 1 *NA* (05/02/22 2:16 PM) Parasite Growth [facility] See Footnote 2 *NA* (05/02/22 2:16 PM) Baso Man [0-1 %] 0 % (04/30/22 4:18 PM) D Dimer, (Quant.) [0.00-0.50 mg/L] 3.65 mg/L 3 *NA* (05/01/22 5:49 PM) Source: [facility] stool *NA* (05/02/22 2:16 PM) O2 Sat Art [95-98 %] 95 % (05/03/22 8:57 AM) WBC Fecal [None Seen] Few *ABN* (05/02/22 2:16 PM) 1Result Comment: Test performed [place] [address] 2Result Comment: RESULT: No ova and parasites seen. Source:stool (If Cryptosporidium, Cyclospora, or Microsporidium are suspected, specific tests must be requested.) Single negative specimen does not rule out the possibility of a parasitic infection. Test performed [place] [address] 3Result Comment: wrong entry Orders for Microbiology Reports Name Date Sputum Culture 05/01/22 Blood Culture 05/01/22 Blood Culture 05/01/22 Microbiology Reports TEST:Sputum Culture STATUS:Auth (Verified) BODY SITE: SOURCE:Sputum COLLECTED DATE/TIME:05/01/22 2:11 PM FINAL REPORT Normal Misti at 48 hours STAIN REPORT Moderate Gram Positive Cocci Moderate White Blood Cells Few Gram Negative Cocci Rare epithelial cells TEST:Blood Culture STATUS:Order in Progress BODY SITE: SOURCE:Blood COLLECTED DATE/TIME:05/01/22 1:30 AM PRELIMINARY REPORT No growth at 24 hours. TEST:Blood Culture STATUS:Order in Progress BODY SITE: SOURCE:Blood COLLECTED DATE/TIME:05/01/22 1:25 AM PRELIMINARY REPORT No growth at 24 hours. Vital Signs Most recent to oldest [Reference Range]: 1 2 3 Temperature Temporal Artery [36-38 Deg C] 36.7 Deg C (05/05/22 2:16 PM) 36.5 Deg C (05/05/22 10:19 AM) 36.4 Deg C (05/05/22 6:26 AM) Temperature Temporal Artery (DegF) [97.3-100 Deg F] 98.6 Deg F (05/04/22 9:13 AM) 98.6 Deg F (05/04/22 8:20 AM) 97.88 Deg F (05/04/22 4:00 AM) Peripheral Pulse Rate [60-100 bpm] 75 bpm (05/05/22 2:16 PM) 72 bpm (05/05/22 10:19 AM) 75 bpm (05/05/22 6:26 AM) Heart Rate Monitored [60-100 bpm] 77 bpm (05/05/22 2:51 PM) 74 bpm (05/05/22 10:42 AM) 77 bpm (05/05/22 10:19 AM) Respiratory Rate [12-24 br/min] 20 br/min (05/05/22 2:51 PM) 21 br/min (05/05/22 2:16 PM) 20 br/min (05/05/22 10:42 AM) Blood Pressure [90-140/60-90 mmHg] 130/70mmHg (05/05/22 2:16 PM) 135/72mmHg (05/05/22 10:19 AM) 130/70mmHg (05/05/22 6:26 AM) Mean Arterial Pressure, Cuff [65-140 mmHg] 90 mmHg (05/05/22 2:16 PM) 93 mmHg (05/05/22 10:19 AM) 90 mmHg (05/05/22 6:26 AM) Mean Arterial Pressure Cuff 82 mmHg (05/04/22 6:37 PM) 88 mmHg (05/03/22 2:53 PM) 79 mmHg (05/03/22 11:07 AM) Blood Pressure Location Right arm (05/04/22 11:01 PM) Right arm (05/03/22 2:53 PM) Right arm (05/03/22 8:09 AM) Blood Pressure Method Automatic (05/04/22 11:01 PM) Automatic (05/03/22 2:53 PM) Automatic (05/03/22 8:09 AM) Weight 57.5 kg (05/05/22 10:19 AM) 57.4 kg (05/04/22 12:39 PM) 49.000 kg (04/30/22 8:11 PM) Weight Measured (lbs) 126.545 lb (05/04/22 12:39 PM) Weight Dosing 49.000 kg (04/30/22 7:58 PM) 49.00 kg (04/30/22 3:58 PM) Usual Weight 52 kg (04/30/22 8:11 PM) Weight Estimated 49.00 kg (04/30/22 3:54 PM) Height 155.000 cm (04/30/22 7:58 PM) Height/Length Dosing 155.000 cm (04/30/22 7:58 PM) 155.000 cm (04/30/22 3:58 PM) Body Mass Index 20.400 kg/m2 (04/30/22 7:58 PM) Height/Length Estimated 155.000 cm (04/30/22 3:54 PM) Social History Social History Type Response Tobacco Current everyday tob acco user Tobacco Use:. 1 pack per day per day. Sex Female Hospital Discharge Instructions Patient Education 05/05/2022 14:28:03 Acute Kidney Injury, Adult Acute Kidney Injury, Adult Acute kidney injury is a sudden worsening of kidney function. The kidneys are organs that have several jobs. They filter the blood to remove waste products and extra fluid. They also maintain a healthy balance of minerals and hormones in the body, which helps control blood pressure and keep bones strong. With this condition, your kidneys do not do their jobs as well as they should. This condition ranges from mild to severe. Over time, it may develop into long- lasting (chronic) kidney disease. Early detection and treatment may prevent acute kidney injury from developing into a chronic condition. What are the causes? Common causes of this condition include: ??? A problem with blood flow to the kidneys. This may be caused by: ??? Low blood pressure (hypotension) or shock. ??? Blood loss. ??? Heart and blood vessel (cardiovascular) disease. ??? Severe biswas. ??? Liver disease. ??? Direct damage to the kidneys. This may be caused by: ??? Certain medicines. ??? A kidney infection. ??? Poisoning. ??? Being around or in contact with toxic substances. ??? A surgical wound. ??? A hard, direct hit to the kidney area. ??? A sudden blockage of urine flow. This may be caused by: ??? Cancer. ??? Kidney stones. ??? An enlarged prostate in males. What increases the risk? You are more likely to develop this condition if you: ??? Are older than age 65. ??? Are female. ??? Are hospitalized, especially if you are in critical condition. ??? Have certain conditions, such as: ??? Chronic kidney disease. ??? Diabetes. ??? Coronary artery disease and heart failure. ??? Pulmonary disease. ??? Chronic liver disease. What are the signs or symptoms? Symptoms of this condition may not be obvious until the condition becomes severe. Symptoms of this condition can include: ??? Tiredness (lethargy) or difficulty staying awake. ??? Nausea or vomiting. ??? Swelling (edema) of the face, legs, ankles, or feet. ??? Problems with urination, such as: ??? Pain in the abdomen, or pain along the side of your stomach (flank). ??? Producing little or no urine. ??? Passing urine with a weak flow. ??? Muscle twitches and cramps, especially in the legs. ??? Confusion or trouble concentrating. ??? Loss of appetite. ??? Fever. How is this diagnosed? Your health care provider can diagnose this condition based on your symptoms, medical history, and a physical exam. You may also have other tests, such as: ??? Blood tests. ??? Urine tests. ??? Imaging tests. ??? A test in which a sample of tissue is removed from the kidneys to be examined under a microscope (kidney biopsy). How is this treated? Treatment for this condition depends on the cause and how severe the condition is. In mild cases, treatment may not be needed. The kidneys may heal on their own. In more severe cases, treatment will involve: ??? Treating the cause of the kidney injury. This may involve changing any medicines you are takingor adjusting your dosage. ??? Fluids. You may need specialized IV fluids to balance your body's needs. ??? Having a catheter placed to drain urine and prevent blockages. ??? Preventing problems from occurring. This may mean avoiding certain medicines or procedures thatcan cause further injury to the kidneys. In some cases, treatment may also require: ??? A procedure to remove toxic wastes from the body (dialysis or continuous renal replacement therapy, CRRT). ??? Surgery. This may be done to repair a torn kidney or to remove the blockage from the urinary system. Follow these instructions at home: Medicines ??? Take [id number] and prescription medicines only as told by your health care provider. ??? Do not take any new medicines without your health care provider's approval. Many medicines can worsen your kidney damage. ??? Do not take any vitamin and mineral supplements without your health care provider's approval. Many nutritional supplements can worsen your kidney damage. Lifestyle ??? If your health care provider prescribed changes to your diet, follow them. You may need to decrease the amount of protein you eat. ??? Achieve and maintain a healthy weight. If you need help with this, ask your health care provider. ??? Start or continue an exercise plan. Try to exercise at least 30 minutes a day, 5 days a week. ??? Do not use any products that contain nicotine or tobacco, such as cigarettes, e-cigarettes, andchewing tobacco. If you need help quitting, ask your health care provider. General instructions ??? Keep track of your blood pressure. Report changes in your blood pressure as told by your healthcare provider. ??? Stay up to date with your vaccines. Ask your health care provider which vaccines you need. ??? Keep all follow-up visits as told by your health care provider. This is important. Where to find more information ??? [employer] of Kidney Patients: www.aakp.org ??? National Kidney Foundation: www.kidney.org ??? [employer]: www.akfinc.org ??? [employer] Rehabilitation Program: ??? www.lifeoptions.org ??? www.kidneyschool.org Contact a health care provider if: ??? Your symptoms get worse. ??? You develop new symptoms. Get help right away if: ??? You develop symptoms of worsening kidney disease, which include: ??? Headaches. ??? Abnormally dark or light skin. ??? Easy bruising. ??? Frequent hiccups. ??? Chest pain. ??? Shortness of breath. ??? End of menstruation in women. ??? Seizures. ??? Confusion or altered mental status. ??? Abdominal or back pain. ??? Itchiness. ??? You have a fever. ??? Your body is producing less urine. ??? You have pain or bleeding when you urinate. Summary ??? Acute kidney injury is a sudden worsening of kidney function. ??? Acute kidney injury can be caused by problems with blood flow to the kidneys, direct damage to the kidneys, and sudden blockage of urine flow. ??? Symptoms of this condition may not be obvious until it becomes severe. Symptoms may include edema, lethargy, confusion, nausea or vomiting, and problems passing urine. ??? This condition can be diagnosed with blood tests, urine tests, and imaging tests. Sometimes a kidney biopsy is done to diagnose this condition. ??? Treatment for this condition often involves treating the underlying cause. It is treated with fluids, medicines, diet changes, dialysis, or surgery. This information is not intended to replace advice given to you by your health care provider. Make sure you discuss any questions you have with your health care provider. Document Revised: 02/29/2020 Document Reviewed: 02/29/2020 [employer] Patient Education ?? 2021 [employer]. Follow Up Care 04/30/2022 15:54:08 With:Follow up with primary care provider Address:Unknown When:1 month EKG study * Event Display: Telemetry Strips Please click on link to view image. * Event Display: Telemetry Strips Please click on link to view image. * Event Display: Telemetry Strips Please click on link to view image. Pharmacology Progress note * Christi Hidalgo PharmD: PERFORM Event Display: Pharmacy Progress Note Authored Date: [id number] Pharmacy Progress Note med rec updated with [facility] 05/01/22 JLRoger pharmD Electronically Signed on 05/01/22 11:28 AM Christi Hidalgo PharmD Respiratory therapy Hospital Progress note * Ginger Hernandez: PERFORM Event Display: Respiratory Therapy Progress Note Authored Date: [id number] ??CHANDU DUTTA 67 Years MEASURED Body Mass Index: 20.4 kg/m2 (04/30/22 19:58:00) Height: 155 cm (04/30/22 19:58:00) Weight: 57.4 kg (05/04/22 12:39:00) DOSING Height/Length Dosin cm (04/30/22 19:58:00) Weight Dosin kg (04/30/22 19:58:00) Respiratory Shift Summary Breath Sounds: coarse crackles, wheezing Shift Treatments: Duoneb, budesonide Shift Events: Respiratory Goals/Plan of Care: Wean oxygen as tolerated Respiratory Protocol??Aerosol Therapy Assessment and Scoring Home Medication Routine: Lung History (2) Current smoker greater than 1 pack/day with greater than 15 pack year history and/or diagnosed lung disease Breath Sounds (2) Intermittent wheezes or moderately diminished or crackles greater than 1/3 up back Respiratory Rate (1)??19-25 Modified Chris Scale or Observed Dyspnea (1) 1-2 With exertion Oxygen Therapy (3) Greater than 6 L/min or equivalent or an increase of O2 therapy from baseline by more than 2 L/min or 10% FiO2 Home Respiratory Medications (0) None Inhaler Use Assessment ? Clinically Stable? Yes? Can take a slow deep breath on command? Yes? Can perform a 3 second breath hold? Yes Respiratory total Score: 9 Respiratory Guidelines 5-9 pts - QID scheduled??and Q4 PRN for SOB Electronically Signed on 05/05/22 06:36 AM Ginger Hernandez * Marcello Mejia: PERFORM Event Display: Respiratory Therapy Progress Note Authored Date: ??CHANDU DUTTA 67 Years MEASURED Body Mass Index: 20.4 kg/m2 (04/30/22 19:58:00) Height: 155 cm (04/30/22 19:58:00) Weight: 57.4 kg (05/04/22 12:39:00) DOSING Height/Length Dosin cm (04/30/22 19:58:00) Weight Dosin kg (04/30/22 19:58:00) Respiratory Shift Summary Breath Sounds: Exp Wheeze Shift Treatments: Vapotherm 35L/80%; DuoNeb; Budesonide Shift Events: None Respiratory Goals/Plan of Care: Wean O2 per patient toleration; Breathing Tx's for wheezing and SOB. Respiratory Protocol??Aerosol Therapy Assessment and Scoring Lung History (2) Current smoker greater than 1 pack/day with greater than 15 pack year history and/or diagnosed lung disease Breath Sounds (3)??Severe or diffuse wheezes or very diminished breath sounds or crackles throughout Respiratory Rate (1)??19-25 Modified Chris Scale or Observed Dyspnea (1) 1-2 With exertion Oxygen Therapy (3) Greater than 6 L/min or equivalent or an increase of O2 therapy from baseline by more than 2 L/min or 10% FiO2 Home Respiratory Medications (0) None Inhaler Use Assessment ? Clinically Stable? Yes? Can take a slow deep breath on command? Yes? Can perform a 3 second breath hold? Yes Respiratory total Score: 10 Respiratory Guidelines 10-14 pts - Q4 scheduled and Q2 PRN for SOB Electronically Signed on 05/04/22 10:39 PM Marcello Mejia * Tish Vuong: PERFORM, MODIFY Event Display: Respiratory Therapy Progress Note Authored Date: ??CHANDU DUTTA 67 Years Assessment: crackles on right side and crackles in LLL pt on Vapotherm 35L flow and 85% FiO2, SpO2 95% HR 78 RR 24. Was able to wean O2 to 80% based on O2 sats 97%. Pt comfortable on Vapotherm at this time. Replaced water bag on vapotherm Treatments: duoneb 0720, 1130, 1330 Plan: continue to wean O2 as tolerated, neb tx QID Respiratory Aerosol Therapy Assessment and Scoring Home Medication Routine: Lung History (2) Current smoker greater than 1 pack/day with greater than 15 pack year history and/or diagnosed lung disease Breath Sounds (2) Intermittent wheezes or moderately diminished or crackles greater than 1/3 up back Respiratory Rate (1)??19-25 Modified Chris Scale or Observed Dyspnea (1) 1-2 With exertion Oxygen Therapy (3) Greater than 6 L/min or equivalent or an increase of O2 therapy from baseline by more than 2 L/min or 10% FiO2 Home Respiratory Medications (0) None Inhaler Use Assessment ? Clinically Stable? _? Can take a slow deep breath on command? _? Can perform a 3 second breath hold? _ Respiratory total score: 9 Respiratory Guidelines 5-9 pts - QID scheduled??and Q4 PRN for SOB Electronically Signed on 05/04/22 04:20 PM Tish Vuong Physician Emergency department Note * Nikhil Cortes MD: PERFORM Event Display: ED Note Physician Authored Date: [id number] CHANDU DUTTA :1955 Age:67 years Sex:Female Visit Date:04/30/2022 Primary Care Physician: Mary Gaspar NP Basic Information Time Seen: Nikhil Cortes MD / 04/30/2022 16:07 Chief Complaint SOB and overall not feeling well History Of Present Illness: Patient with a history of heavy smoking for many years and??recent??right hip replacement 5 months ago??now presents from??local clinic for??cough worsening shortness of breath fevers to 103??and??presented hypoxic to 83 fraction 87%??on room air. ??Patient uses no supplemental oxygen and has no diagnosis of COPD despite her smoking history.?? States that she had positive sick contacts??at home??with multiple sick children. Review of Systems: Constitutional:?Positive for??fevers,?Positive for??chills,?No??sweats Eye:?No??recent visual problems ENT:?No??ear pain,?No??nasal congestion,?No??sore throat Respiratory:?Positive for??shortness of breath,?Positive for??cough Cardiovascular:?No??Chest pain,?No??palpitations,?No??syncope Gastrointestinal:?Positive fornausea,?No??vomiting,?No??diarrhea Genitourinary:?No??hematuria Chadd/Lymph:?No??bruising tendency,?No??swollen lymph glands Endocrine:?No??excessive thirst,??No??excessive hunger Musculoskeletal:??No??back pain,??No??neck pain,??No??joint pain,??No??muscle pain,??No??decreased range of motion Integumentary:?No??rash,?No??pruritus,?No??abrasions Neurologic: Alert & oriented X 4 Psychiatric:?No??anxiety,?No??depression Physical Exam Vitals & Measurements T:??37?C ??(Temporal Artery)?? HR:??88??(Peripheral)?? RR:??18?? BP:??149/43?? SpO2:??93%?? HT:??155.000??cm?? WT:??49.000??kg?? BMI:??20.400?? Pain Score:??0?? O2 Flow Rate:??4?? O2 Therapy:??Nasal cannula?? General: Alert and oriented, well nourished,?No??acute distress Eye: PERRL, EOMI,?Normal??conjunctiva HENT: Normocephalic,??Normal?? hearing, moist oral mucosa,?No??scleral icterus Neck:??FROM,??No??JVD Lungs: Non-labored?? respiration, mild bilateral wheezes Heart:?Normal?? rate,?Regular??rhythm,?No??peripheral edema, Adequate peripheral perfusion Abdomen: Soft, non-tender, non-distended,?Normal?? bowel sounds,?No??masses Musculoskeletal:?Normal?? range of motion and strength,?No??tenderness,?No??swelling Skin:??No??rashes,?No??lesions, Dry Neurologic: Awake, alert and oriented X4, CN II-XII intact, Steady Gait Psychiatric: Cooperative, appropriate mood and affect. Linear thought process Medical Decision Making: ? Will obtain chest x-ray to rule out pneumonia and repeat COVID and flu screens.?? If patient requires oxygen support she will need to be admitted??for a mixed respiratory condition most likely COPD in addition to severe bronchitis or??pneumonia. ?? Patient improved on oxygen supplementation.?? She is found to be in acute renal failure. ??Probablyaccommodation of dehydration use of diuretics??and underlying kidney disease that has been yet to be diagnosed. ?? Patient was presented the hospital service for admission. ??She was administered IV fluids.?? Toradol was administered??before laboratory tests were back as the patient was complaining of myalgiasthroughout her whole body.?? There is no history initially given of renal disease. ??It was a one-time dose. Procedure No Qualifying Data Assessment/Plan Acute kidney injury??N17.9 Dehydration, severe??E86.0 Hypoxia??R09.02 Orders: Sodium Chloride 0.9% 1,000 mL, Total Volume (mL): 1,000, 1,000 mL, Soln-IV, IV, 1,000 mL/hr, Start Date: 04/30/22 16:24:00 EST, 49 kg, Populate Charting Weight From Order, 1.45, m2 Decision to Admit, 04/30/22 18:02:00 EST, Labor & Delivery Medication Reconciliation Unchanged aspirin (aspirin 81 mg oral delayed release tablet) ?? cyclobenzaprine (cyclobenzaprine 10 mg oral tablet)1 tab Oral (given by mouth) 3 times a day. ?? losartan (losartan 100 mg oral tablet) ?? multivitamin (multivitamin adult, oral tablet) ?? multivitamin with minerals (Vitamin D with Minerals oral tablet) ?? Other Prescription (Collagen Plus Vitamin C)Take 3 tabs in am & 3 tabs in pm. ?? pantoprazole (Protonix 40 mg oral delayed release tablet)1 tab Oral (given by mouth) every day. ?? rosuvastatin (rosuvastatin 10 mg oral tablet) ?? senna (Senna-Time 8.6 mg oral tablet) ?? sertraline (sertraline 50 mg oral tablet) ?? ubiquinone (Co Q-10) ?? 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 Long-term current use of drug therapy Low back pain Muscle weakness Old myocardial infarction Pain in limb Pain in right arm Prolapse of vaginal vault after hysterectomy Spasm Historical Menopausal symptom Procedure/Surgical History ???Colonoscopy through stoma; with biopsy, single or multiple (12/13/2020)???gastritis, intact Manolo fundoplication (12/13/2020)???Epiglottidectomy (12/13/2020)???Repair of vaginal wall prolapse (procedure) (2019)???Hernia repair (procedure) (2018)???Excision, excessive skin and subcutaneous tissue (includes lipectomy), abdomen (eg, abdominoplasty) (includes umbilical transposition and fascial plication) (List separately in addition to code for primary procedure) (05/05/1996)???Surgical treatment of ectopic ; abdominal (05/05/1981)???Anesthesia for cardiac catheterization including coronary angiography and ventriculography (not to include [place]-Maxi catheter) Medication Administration Given Sodium Chloride 0.9%, 1000 mL, IV Sodium Chloride 0.9%, 1000 mL, IV !-DuoNeb, 3 mL, Inhale !-Robitussin, 400 mg, Oral acetaminophen, 650 mg, Oral ipratropium-albuterol 0.5 mg-2.5 mg/3 mL inhalation solution, 3 mL, Inhale ipratropium-albuterol 0.5 mg-2.5 mg/3 mL inhalation solution, 3 mL, Inhale Klor-Con, 40 mEq, Oral NS bolus, 250 mL, IV Piggyback pantoprazole, 40 mg, IV Push Toradol, 30 mg, IV Bolus zolpidem, 10 mg, Oral Allergies amoxicillin-clavulanate atenolol lisinopril thiazide diuretics Social History Electronic Cigarette/Vaping Electronic Cigarette Use: Never. Tobacco Current everyday tobacco user Tobacco Use:. 1 pack per day per day. Family History Patient was adopted Tourette's syndrome: Son. Lab Results CBC and Differential?? LATEST RESULTS?? WBC?? 05/01/22 07:05?? 6.5?? RBC?? 05/01/22 07:05?? 3.7 ??Low?? Hgb?? 05/01/22 07:05?? 11.6 ??Low?? Hct?? 05/01/22 07:05?? 35.0 ??Low?? MCV?? 05/01/22 07:05?? 93.6?? MCH?? 05/01/22 07:05?? 31.0?? MCHC?? 05/01/22 07:05?? 33.1?? RDW-CV?? 05/01/22 07:05?? 12.3?? Platelets?? 05/01/22 07:05?? 143? Routine Chemistry?? LATEST RESULTS?? Sodium Level?? 05/01/22 07:05?? 137?? Potassium Level?? 05/01/22 07:05?? 3.8?? Chloride Level?? 05/01/22 07:05?? 106?? CO2?? 05/01/22 07:05?? 19 ??Low?? Alk Phos?? 04/30/22 22:20?? 67?? AST?? 04/30/22 22:20?? 20?? ALT?? 04/30/22 22:20?? 14?? BUN?? 05/01/22 07:05?? 61 ??High?? Glucose Level?? 05/01/22 07:05?? 126 ??High?? Creatinine Level?? 05/01/22 07:05?? 3.60 ??High?? eGFR AA?? 05/01/22 07:05?? 13 ??Low?? eGFR Non-AA?? 05/01/22 07:05?? 13 ??Low?? Calcium Level?? 05/01/22 07:05?? 7.8 ??Low?? Protein Total?? 04/30/22 22:20?? 6.4?? Albumin Level?? 04/30/22 22:20?? 2.8 ??Low?? Bilirubin Total?? 04/30/22 22:20?? 0.5?? Lactic Acid Lvl?? 05/01/22 01:30?? 0.8?? Magnesium Level?? 04/30/22 22:20?? 1.8? UA Macroscopic?? LATEST RESULTS?? UA Color?? 05/01/22 01:15?? Yellow?? UA Appear?? 05/01/22 01:15?? Hazy Abnormal?? UA Glucose?? 05/01/22 01:15?? Negative?? UA Bili?? 05/01/22 01:15?? Negative?? UA Ketones?? 05/01/22 01:15?? Negative?? UA Spec Grav?? 05/01/22 01:15?? 1.020?? UA Blood?? 05/01/22 01:15?? 1+ Abnormal?? UA pH?? 05/01/22 01:15?? 5.5?? UA Protein?? 05/01/22 01:15?? 1+ Abnormal?? UA Urobilinogen?? 05/01/22 01:15?? Normal?? UA Nitrite?? 05/01/22 01:15?? Negative?? UA Leuk Est?? 05/01/22 01:15?? Negative?? UA Culture Ind?.?? 05/01/22 01:15?? Not Indicated? UA Microscopic?? LATEST RESULTS?? UA WBC?? 05/01/22 01:15?? 0-3?? UA RBC?? 05/01/22 01:15?? 0-2?? UA Squam Epithelial?? 05/01/22 01:15?? Rare?? UA Mucous?? 05/01/22 01:15?? None Seen?? UA Bacteria?? 05/01/22 01:15?? Rare?? UA Hyal Cast?? 05/01/22 01:15?? Rare? Electronically Signed on 05/01/22 08:14 AM Nikhil Cortes MD Physical therapy Progress note * Chase Brown PT, DPT: PERFORM Event Display: Physical Therapy Progress Note Authored Date: Patient ID and date of checked:?? Yes verbally *Current Level of Care: In-Patient *Admitting Diagnosis: Shortness of breath and Fever *Therapy Diagnosis: Weakness Pertinent Medical History: Sofia is a 67 year old female who has been admitted due to severe shortness of breath, loss of appetite and fever. Pt has accompanying rib and abdominal pain. Pt has been - for Flu and COVID but has had close recent exposure to COVID + family members. *Subjective: ??Patient in bed when PT arrived and reports she was sig more SOB yesterday than today; pt is on high flow . Pt responds well to cues to perform diaphragmatic breathing in sitting and standing. Pt reports she is less dizzy than she was on Friday as well. Pt encouraged by improved functional abilities compared to yesterday. Pain: ?n/a Bed Mobility: Activity Assistance Comments Rolling ??I Scooting/Repositioning ??I Supine to Sit ??I Sit to Supine ??I Transfers: Activity Assistive Device Assistance Comments Sit to Stand ??No AD ??SBA ??Needs someone to cue her to safely manage 02 line Stand to Sit ? Bed to Chair ? Chair to Bed Shower Transfer Toilet Transfer ?Performed multiple rounds of sit to stands with weight shifting in standing as well as cues on deep breathing throughout tx. Ambulation: Assistance Assistive Device Distance Comments ??SBA ??No AD ??8' x1 ??Needs someone to cue her to safely manage IV pole and 02 line *Procedure Documentation: CPT 31339: Therapeutic Activities - Direct 1:1 :?19?? minutes Therapeutic activities to improve functional performance of ADL specific activities such as: Treatment techniques utilized today included: Seated and standing deep breathing techniques; safety with transfers *Patient Education: rationale for activity and positive impact of monitored movement/ activity withPneumonia *Physical Therapy Assessment: ??Pt is progressing with functional activity tolerance compared to yesterday. Her 02 Sat went down to 87-88% at its lowest with activity, however, remained >92% the majority of the tx. Pt 02 sat was 93% in supine at beginning of tx and with activity by end of tx pt had bouts of 98% 02 sat. RT and RN in pt room during ambulation and transfer to rocking chair and PTpromotes regular standing and short ambulation with supervision as appropriate. Pt is hopeful she will DC home over the weekend. Pt should DC home with home health PT and then follow up for outpatient PT afterwards. Goal Updates: ??progressing *PT Plan of Care: ??continue *Total Time: ??19 minutes *Time In: 1012 *Time Out: 1031 Electronically Signed on 05/03/22 11:09 AM Chase Brown PT, DPT * Supriya Frankel PT, MPT: PERFORM Event Display: Physical Therapy Progress Note Authored Date: [id number] Patient ID and date of checked:?? Yes verbally *Current Level of Care: In-Patient *Admitting Diagnosis: Shortness of breath and Fever *Therapy Diagnosis: Weakness Pertinent Medical History: Sofia is a 67 year old female who has been admitted due to severe shortness of breath, loss of appetite and fever. Pt has accompanying rib and abdominal pain. Pt has been - for Flu and COVID but has had close recent exposure to COVID + family members. *Subjective: ??Patient in bed when PT arrived. She reports she continues to have issues with sob. Pain: ?n/a Bed Mobility: Activity Assistance Comments Rolling ??I Scooting/Repositioning ??I Supine to Sit ??I Sit to Supine ??I Transfers: Activity Assistive Device Assistance Comments Sit to Stand Stand to Sit Bed to Chair Chair to Bed Shower Transfer Toilet Transfer Ambulation: Assistance Assistive Device Distance Comments Stairs: Assistance Assistive Device # Steps Comments Wheelchair Mobility: Assistance Distance Comments *Procedure Documentation: CPT 41450: Therapeutic Exercise:?15? minutes Therapeutic exercise to promote improved joint stability, strength, endurance, and range of motion for functional ADL???s such as: Specific education/training provided: PT limited session as Patient reports dizziness with all standing activity When moving to eob she had spo2 of 85 initially and hr of167 bpm taking 5 minutes to return to 93% on 4 L 02 via nc. With all activity attempted she continued to destat and demonstrate symptoms of hypoxia. At end of session it was noted that with the pulmonary exercises her SP02 was at 97-98% and HR down to 83 bpm HEP pulmonary exercises with pursed lipped breathing patterns *Patient Education: rationale for exercises *Physical Therapy Assessment: ??Patient limited in session due to poor tolerance of activity. currently she would require full assist at home due to her activity intolerance. PT will continue to see over length of stay and assess her needs at this time she would require short term placement post discharge Goal Updates: ??progressing *PT Plan of Care: ??continue *Total Time: ??15 minutes *Time In: ??1120am *Time Out: 1135am Electronically Signed on 05/02/22 12:54 PM Supriya Frankel PT, MPT * Chase Brown PT, DPT: PERFORM Event Display: Physical Therapy Progress Note Authored Date: [id number] Patient ID and date of checked:?? Yes verbally *Current Level of Care: In-Patient *Admitting Diagnosis: Shortness of breath and Fever *Therapy Diagnosis: Weakness Pertinent Medical History: Sofia is a 67 year old female who has been admitted due to severe shortness of breath, loss of appetite and fever. Pt has accompanying rib and abdominal pain. Pt has been - for Flu and COVID but has had close recent exposure to COVID + family members. 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 After getting up pt reports she had to go to the bathroom and is able to ambulate with SBA and PT managing IV pole and 02 line. Hand Dominance: Right *Barriers to Learning: ??x None Communication Cultural Education level Hearing Language Vision Physical Cognitive Motivational Emotional Precautions: Standard precautions MRSA/VRE Contact precautions ??x Droplet precautions Airborne precautions Covid precautions Total hip replacement Total knee replacement Total shoulder replacement Fall risk *Previous Level of Function: Pt is I and drives. She has no AD and is independent with ADLs. Occupational Status/Profile: Not asked Prior Home Setup: ?? Living Situation/Level of Supervision: Pt lives with sig other ?Living Environment: House ?Stairs/Ramps: 26 indoor steps and 4 outside steps with hand rails ?Home Equipment: none *Current Level of Function: Pt is severely short of breath at rest and with short distance ambulation Pain: ?Significant in her ribs and abdomen Vision/Hearing: WFL Cognition: ?Orientation: Ox4 ?Safety Awareness: good Passive/Active Range of Motion: L Manual Muscle Testing: ??WFL Bed Mobility: Activity Assistance Comments Rolling ??I Scooting/Repositioning ??I Supine to Sit ??I Sit to Supine ??I Transfers: Activity Assistive Device Assistance Comments Sit to Stand ??No AD ??SBA ??Needs someone to cue her to safely manage IV pole and 02 line Stand to Sit ? Bed to Chair ? Chair to Bed Shower Transfer Toilet Transfer Ambulation: Assistance Assistive Device Distance Comments ??SBA ??No AD ??6' + 20' x2 ??Needs someone to cue her to safely manage IV pole and 02 line Stairs: Assistance Assistive Device # Steps Comments Wheelchair Mobility: Assistance Distance Comments Balance: ?? Static Sitting: good ?Dynamic Sitting: good ?Static Standing: good- ?Dynamic Standing: n/a Posture: fair *Standardized Testing: Standardized Test: [facility] Functional Impairment Rating ? Score: 6 ? Comments: 30% functional impairment *Patient Education: ??Safety with IV pole and 02 and need to call for assistance for fall prevention; goals of PT *Physical Therapy Assessment: Sofia is a 67 year old female who has been admitted due to severe shortness of breath, loss of appetite and fever. Pt has accompanying rib and abdominal pain. Pt has been - for Flu and COVID but has had close recent exposure to COVID + family members. She is below her baseline for functional mobilityand it is mostly secondary to SOB, cough and not being used to managing IV lines/ 02. She is not safe to transfer or ambulate without assistance for previously mentioned reasons as well as having dizziness which varies in severity from moderate to extreme. Pt will continue to benefit from skilled PT during her stay in the hospital for safest DC plan home. *Rehab Potential: Excellent?_ *Short Term Goals?time frame: 3 days Ambulate >250 ft with Sridhar and 02 sat >90%. Ascend and descend 24 steps with standing rest breaks with no loss of balance. Be I in her room safely. *Firefighter Type One Goals?time frame: see STGs. *Patient Goals: To get the breathing under control PT Plan of Care (as per below) *Treatment Duration: until goals are met *Treatment Frequency: M-Fr *Treatment Intensity: 30 min *Planned Treatment Interventions: ??x CPT 60097: Therapeutic Exercise ??x CPT 83678: Therapeutic Activity ??x CPT 02643: Gait Training ??x CPT 36504: Neuromuscular Re-education ??x CPT 75923: Self-Care/Home Management CPT 28329: Manual Therapy CPT 69645: Ultrasound CPT G0283: Electrical Stimulation CPT 26174: Initial Orthotic Fit/Train CPT 91398: Initial Prosthetic Train CPT 17645:??Subsequent??Orthotic??Check CPT 34005:??Wheelchair??Management??Training *Discharge Plan:?Upon meeting therapy goals, max therapy benefit, or discharge from facility. Discharge Recommendations: ?? Home equipment needs: ?Post discharge Rehab needs: home health ?? Disposition: home ?Supervision needs: limited supervision ?Discussed plan of care with: RN *Evaluation Procedure Documentation: CPT 95236: Low Complexity PT Evaluation:?17?? minutes Physical Therapy Evaluation performed. History involves 1-2 personal factors and/or comorbidities. Examination of body system(s) includes 1-2 elements. Clinical presentation is stable. Clinical decision making is low. *Total Time: 17 min *Time In: 924 *Time Out: 09 Electronically Signed on 05/01/22 01:48 PM Chase Brown PT, DPT Nutrition and dietetics Progress note * Hanane Vidal RD: PERFORM Event Display: Nutrition Note Authored Date: [id number] Nutrition Recommendations Patient was up in her chair with HF nasal canula in place when I met with her today. She has been trying to eat though it is tiring for her to cut up, chew and swallow in the setting of SOB. We discussed choosing easy to chew foods such as yogurt canned fruits, eggs etc. to help her meet her increased energy needs. At this time she is still only able to eat bites of her meals and liquids are moreeasily tolerated and consumed. We discussed trying a small portion of boost nutrition supplement ather meals which Sofia would like to try. Nutrition Risk Level moderate Assessment and Monitoring monitor labs, vitals, intake, follow up 2x/week and as needed. Nutrition Diagnosis NCP Diagnosis Priority: 5(Recorded: 05/01/2022 10:48 EST) Inadequate oral intakerelated to Limited food acceptance due to physiological issuesas evidenced byless than 50% intake breakfast tolerated Nutrition Interventions 4 ounce vanilla boost with meals Anthropometrics/Estimated Needs Ckgjfl69.000 kg(Recorded: 04/30/2022 20:11 EST) Usual Jtsycm44 kg(Recorded: 04/30/2022 20:11 EST) Omfizo856.000 cm(Recorded: 04/30/2022 19:58 EST) Body Mass Index20.400 kg/m2(Recorded: 04/30/2022 19:58 EST) Estimated Energy Needs Low kcal/kg/day25 kcal/kg/day(Recorded: 05/01/2022 10:48 EST) Estimated Energy Needs Low kcal/srj5957 kcal/day(Recorded: 05/01/2022 10:48 EST) Estimated Energy Needs High kcal/ngr9475 kcal/day(Recorded: 05/01/2022 10:48 EST) Estimated Energy Needs High kcal/kg/day28 kcal/kg/day(Recorded: 05/01/2022 10:48 EST) Estimated Fluid Needs Low mL/kg per day30 mL/kg/day(Recorded: 05/01/2022 10:48 EST) Estimated Protein Needs Low g/day41.6 g/day(Recorded: 05/01/2022 10:48 EST) Estimated Protein Needs High g/day52 g/day(Recorded: 05/01/2022 10:48 EST) Estimated Protein Needs Low g/kg/day0.8 g/kg/day(Recorded: 05/01/2022 10:48 EST) Estimated Protein Needs High g/kg/day1.0 g/kg/day(Recorded: 05/01/2022 10:48 EST) Reason for Visit SOB and overall not feeling well Problem List/Past Medical History Ongoing Abnormal cytology findings Anxiety CTS (carpal tunnel syndrome) Cubital tunnel syndrome Diverticular disease of colon Gastroesophageal reflux disease H/O: poliomyelitis Hyperlipidemia Hypertensive disorder 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 Long-term current use of drug therapy Low back pain Muscle weakness Old myocardial infarction Pain in limb Pain in right arm Prolapse of vaginal vault after hysterectomy Spasm Historical Menopausal symptom Procedure/Surgical History ???Colonoscopy through stoma; with biopsy, single or multiple (12/13/2020)???gastritis, intact Manolo fundoplication (12/13/2020)???Epiglottidectomy (12/13/2020)???Repair of vaginal wall prolapse (procedure) (2019)???Hernia repair (procedure) (2018)???Excision, excessive skin and subcutaneous tissue (includes lipectomy), abdomen (eg, abdominoplasty) (includes umbilical transposition and fascial plication) (List separately in addition to code for primary procedure) (05/05/1996)???Surgical treatment of ectopic ; abdominal (05/05/1981)???Anesthesia for cardiac catheterization including coronary angiography and ventriculography (not to include [place]-Maxi catheter) Social History Electronic Cigarette/Vaping Electronic Cigarette Use: Never. Tobacco Current everyday tobacco user Tobacco Use:. 1 pack per day per day. Family History Patient was adopted Tourette's syndrome: Son. Diet Orders Diet Order, 04/30/22 19:44:00 EST, Regular Allergies amoxicillin-clavulanate atenolol lisinopril thiazide diuretics Nutrition Lab Results Test Name Test Result Date/Time WBC 10.4 x10^3/mcL 05/03/2022 06:14 EST Hgb 10.8 g/dL 05/03/2022 06:14 EST Hct 31.0 % 05/03/2022 06:14 EST MCV 88.8 05/03/2022 06:14 EST Platelets 221 x10^3/mcL 05/03/2022 06:14 EST Sodium Level 141 mmol/L 05/03/2022 06:14 EST Potassium Level 3.1 mmol/L 05/03/2022 06:14 EST Chloride Level 109 mmol/L 05/03/2022 06:14 EST CO2 20 mmol/L 05/03/2022 06:14 EST Alk Phos 67 unit/L 04/30/2022 22:20 EST ALT 14 unit/L 04/30/2022 22:20 EST BUN 39 mg/dL 05/03/2022 06:14 EST Glucose Level 219 mg/dL 05/03/2022 06:14 EST Creatinine Level 1.42 mg/dL 05/03/2022 06:14 EST Albumin Level 2.8 g/dL 04/30/2022 22:20 EST Bilirubin Total 0.5 mg/dL 04/30/2022 22:20 EST Magnesium Level 1.8 mg/dL 04/30/2022 22:20 EST Medications Inpatient !-DuoNeb, 3 mL, Inhale, QID RT !-Robitussin, 400 mg= 20 mL, Oral, every 4 hr, PRN acetaminophen, 650 mg= 2 tab, Oral, every 6 hr, PRN albuterol, 2.5 mg, Inhale, every 2 hr RT, PRN amLODIPine, 5 mg= 1 tab, Oral, Daily aspirin, 81 mg= 1 tab, Oral, Daily atorvastatin, 10 mg= 1 tab, Oral, Daily azithromycin budesonide 0.5 mg/2 mL inhalation suspension, 0.5 mg= 2 mL, NEB, BID RT cefTRIAXone cyclobenzaprine, 10 mg= 1 tab, Oral, TID enoxaparin, 50 mg= 0.5 mL, Subcutaneous, every night at bedtime glucagon, 1 mg= 3 mL, IM, As Directed, PRN insulin lispro (HumaLog) correction- sensitive, Sensitive Scale, Subcutaneous, QID(ACHS) ipratropium-albuterol 0.5 mg-2.5 mg/3 mL inhalation solution, 3 mL, Inhale, every 4 hr RT, PRN Lantus, 10 units= 0.1 mL, Subcutaneous, every morning lidocaine 1% injectable solution, 5 mg= 0.5 mL, Intradermal, As Directed, PRN LORazepam, 0.5 mg= 1 tab, Oral, QID, PRN Multiple Vitamins oral tablet, 1 tab, Oral, Daily Normal Saline Flush, 10 mL, IV Push, every 12 hr (omar) Lincoln-3 1000 mg oral capsule, 1000 mg= 1 cap, Oral, Daily ondansetron, 4 mg= 2 mL, IV Push, every 6 hr, PRN pantoprazole, 40 mg= 1 EA, IV Push, Daily polyethylene glycol 3350, 17 g= 1 packets, Oral, Daily, PRN potassium acetate + Sodium Chloride 0.9% 250 mL potassium chloride, 20 mEq= 1 tab, Oral, BID senna, 8.6 mg= 1 tab, Oral, BID sertraline, 25 mg= 0.5 tab, Oral, Daily Sodium Chloride 0.9% 1,000 mL, 1000 mL, IV Sodium Chloride 0.9% 1,000 mL, 1000 mL, IV SOLU-Medrol, 40 mg= 1 EA, IV Push, every 6 hr Tamiflu, 30 mg= 1 cap, Oral, Daily zolpidem, 10 mg= 2 tab, Oral, every night at bedtime, PRN Home aspirin 81 mg oral delayed release tablet, 81 mg= 1 tab, Oral, Daily Co Q-10, 100 mg, Oral, Daily losartan 50 mg oral tablet, 50 mg= 1 tab, Oral, Daily rosuvastatin 10 mg oral tablet, 10 mg= 1 tab, Oral, every night at bedtime Senna-Time 8.6 mg oral tablet, 17.2 mg= 2 tab, Oral, every night at bedtime, PRN sertraline 25 mg oral tablet, 25 mg= 1 tab, Oral, Daily triamterene-hydrochlorothiazide 37.5mg-25mg oral capsule, 1 cap, Oral, Daily Vitamin D with Minerals oral tablet, 2 tab, Oral, Daily Vitamin D3 2000 intl units oral capsule, 50 mcg= 1 cap, Oral, Daily zolpidem 10 mg oral tablet, 10 mg= 1 tab, Oral, every night at bedtime, PRN Electronically Signed on 05/03/22 11:[address] * Hanane Vidal RD: PERFORM Event Display: Nutrition Note Authored Date: [id number] Nutrition Recommendations Patient reports 3 days of diarrhea and very poor intake with weight loss of 1- 2kg. Patient reports appetite is improving but not back to normal. she had <50% breakfast this morning-mostly bites, however this is more than she has tolerated in several days. She is drinking and continues with IVF 125mL/hr. electrolytes corrected, BUN, creatine??trending down though still high. No supplements at th is time, will continue to monitor intake and labs. Nutrition Risk Level moderate Assessment and Monitoring monitor intake, labs, vitals, weight. follow up 1-2 x/week as needed Nutrition Diagnosis NCP Diagnosis Priority: 5(Recorded: 05/01/2022 10:48 EST) Inadequate oral intakerelated to Limited food acceptance due to physiological issuesas evidenced byless than 50% intake breakfast tolerated Nutrition Goals increase po intake as tolerated. maintain weight Nutrition Interventions encourage small frequent meals and snacks, encourage fluids ?? RD will continue to follow Anthropometrics/Estimated Needs Lltykd95.000 kg(Recorded: 04/30/2022 20:11 EST) Usual Nkrxrd75 kg(Recorded: 04/30/2022 20:11 EST) Syxpau243.000 cm(Recorded: 04/30/2022 19:58 EST) Body Mass Index20.400 kg/m2(Recorded: 04/30/2022 19:58 EST) Estimated Energy Needs Low kcal/kg/day25 kcal/kg/day(Recorded: 05/01/2022 10:48 EST) Estimated Energy Needs Low kcal/uzi4658 kcal/day(Recorded: 05/01/2022 10:48 EST) Estimated Energy Needs High kcal/jtb6935 kcal/day(Recorded: 05/01/2022 10:48 EST) Estimated Energy Needs High kcal/kg/day28 kcal/kg/day(Recorded: 05/01/2022 10:48 EST) Estimated Fluid Needs Low mL/kg per day30 mL/kg/day(Recorded: 05/01/2022 10:48 EST) Estimated Protein Needs Low g/day41.6 g/day(Recorded: 05/01/2022 10:48 EST) Estimated Protein Needs High g/day52 g/day(Recorded: 05/01/2022 10:48 EST) Estimated Protein Needs Low g/kg/day0.8 g/kg/day(Recorded: 05/01/2022 10:48 EST) Estimated Protein Needs High g/kg/day1.0 g/kg/day(Recorded: 05/01/2022 10:48 EST) Reason for Visit SOB and overall not feeling well Problem List/Past Medical History Ongoing Abnormal cytology findings Anxiety CTS (carpal tunnel syndrome) Cubital tunnel syndrome Diverticular disease of colon Gastroesophageal reflux disease H/O: poliomyelitis Hyperlipidemia Hypertensive disorder 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 Long-term current use of drug therapy Low back pain Muscle weakness Old myocardial infarction Pain in limb Pain in right arm Prolapse of vaginal vault after hysterectomy Spasm Historical Menopausal symptom Procedure/Surgical History ???Colonoscopy through stoma; with biopsy, single or multiple (12/13/2020)???gastritis, intact Manolo fundoplication (12/13/2020)???Epiglottidectomy (12/13/2020)???Repair of vaginal wall prolapse (procedure) (2019)???Hernia repair (procedure) (2018)???Excision, excessive skin and subcutaneous tissue (includes lipectomy), abdomen (eg, abdominoplasty) (includes umbilical transposition and fascial plication) (List separately in addition to code for primary procedure) (05/05/1996)???Surgical treatment of ectopic ; abdominal (05/05/1981)???Anesthesia for cardiac catheterization including coronary angiography and ventriculography (not to include [place]-Maxi catheter) Social History Electronic Cigarette/Vaping Electronic Cigarette Use: Never. Tobacco Current everyday tobacco user Tobacco Use:. 1 pack per day per day. Family History Patient was adopted Tourette's syndrome: Son. Diet Orders Diet Order, 04/30/22 19:44:00 EST, Regular Allergies amoxicillin-clavulanate atenolol lisinopril thiazide diuretics Nutrition Lab Results Test Name Test Result Date/Time WBC 6.5 x10^3/mcL 05/01/2022 07:05 EST Hgb 11.6 g/dL 05/01/2022 07:05 EST Hct 35.0 % 05/01/2022 07:05 EST MCV 93.6 05/01/2022 07:05 EST Platelets 143 x10^3/mcL 05/01/2022 07:05 EST Sodium Level 137 mmol/L 05/01/2022 07:05 EST Potassium Level 3.8 mmol/L 05/01/2022 07:05 EST Chloride Level 106 mmol/L 05/01/2022 07:05 EST CO2 19 mmol/L 05/01/2022 07:05 EST Alk Phos 67 unit/L 04/30/2022 22:20 EST ALT 14 unit/L 04/30/2022 22:20 EST BUN 61 mg/dL 05/01/2022 07:05 EST Glucose Level 126 mg/dL 05/01/2022 07:05 EST Creatinine Level 3.60 mg/dL 05/01/2022 07:05 EST Albumin Level 2.8 g/dL 04/30/2022 22:20 EST Bilirubin Total 0.5 mg/dL 04/30/2022 22:20 EST Magnesium Level 1.8 mg/dL 04/30/2022 22:20 EST Medications Inpatient !-Robitussin, 400 mg= 20 mL, Oral, every 4 hr, PRN acetaminophen, 650 mg= 2 tab, Oral, every 6 hr, PRN aspirin, 81 mg= 1 tab, Oral, Daily atorvastatin, 10 mg= 1 tab, Oral, Daily cyclobenzaprine, 10 mg= 1 tab, Oral, TID enoxaparin, 40 mg= 0.4 mL, Subcutaneous, every 24 hr ipratropium-albuterol 0.5 mg-2.5 mg/3 mL inhalation solution, 3 mL, Inhale, every 4 hr RT, PRN ipratropium-albuterol 0.5 mg-2.5 mg/3 mL inhalation solution, 3 mL, Inhale, QID lidocaine 1% injectable solution, 5 mg= 0.5 mL, Intradermal, As Directed, PRN losartan, 100 mg= 2 tab, Oral, Daily Multiple Vitamins oral tablet, 1 tab, Oral, Daily Normal Saline Flush, 10 mL, IV Push, every 12 hr (omar) Lincoln-3 1000 mg oral capsule, 1000 mg= 1 cap, Oral, Daily ondansetron, 4 mg= 2 mL, IV Push, every 6 hr, PRN pantoprazole, 40 mg= 1 EA, IV Push, Daily polyethylene glycol 3350, 17 g= 1 packets, Oral, Daily, PRN senna, 8.6 mg= 1 tab, Oral, BID sertraline, 50 mg= 1 tab, Oral, Daily Sodium Chloride 0.9% 1,000 mL, 1000 mL, IV Sodium Chloride 0.9% 1,000 mL, 1000 mL, IV Sodium Chloride 0.9% 1,000 mL, 1000 mL, IV zolpidem, 10 mg= 2 tab, Oral, every night at bedtime, PRN Home aspirin 81 mg oral delayed release tablet Co Q-10 Collagen Plus Vitamin C cyclobenzaprine 10 mg oral tablet, 10 mg= 1 tab, Oral, TID losartan 100 mg oral tablet multivitamin adult, oral tablet Protonix 40 mg oral delayed release tablet, 40 mg= 1 tab, Oral, Daily rosuvastatin 10 mg oral tablet Senna-Time 8.6 mg oral tablet sertraline 50 mg oral tablet Vitamin D with Minerals oral tablet zolpidem 10 mg oral tablet Electronically Signed on 05/01/22 11:[address] Emergency department Note * Teressa Nunez M: PERFORM Event Display: ED Notes Authored Date: [id number] Progress note * Jatin Steele DO: PERFORM Event Display: Progress Note - Physician Authored Date: [id number] CHANDU DUTTA :1955 Age:67 years Sex:Female Visit Date:04/30/2022 Primary Care Physician: Mary Gaspar SKIN LAP BONDER Subjective Seems??likely that she is making slow progress. ?? Pulmonology felt??we should probably??stop steroids today.?? As she is seem to make slow progress. ??I will??cut back but not stop them altogether.?? Will cut back from 160 mg a day to??60??of Solu-Medrol??in divided doses. ?? If she were to decompensate??she would need to be intubated and transferred to an ICU which would be the level of care recommended by??pulmonology.?? Unfortunately no beds at [facility] or [facility].?? I have not called??other ICUs??as she seems to be making some progress but if she decompensates we will certainly need to call around??though she likely need to go far field??if??recent past is prologue. ?? She is not unreasonably anxious about her circumstances. ?? I did send off the recommended??testing??yesterday??but this will take some time to return. Review of Systems Dyspnea remains her main complaint.?? Denies chest pain, palpitations, dizziness, headaches, suddenvisual changes, cough, or new peripheral edema. Objective Vitals & Measurements T:??36.4?C ??(Temporal Artery)?? TMIN:??36.4?C ??(Temporal Artery)?? TMAX:??37.0?C ??(Temporal Artery)?? HR:??68??(Monitored)?? RR:??24?? BP:??130/70?? SpO2:??98%?? WT:??57.4??kg?? Pain Score:??0?? O2 Flow Rate:??35?? O2 Therapy:??High-Flow nasal cannula?? Physical Exam General: Alert and oriented woman who appears stated age.?? Respiratory distress seems to be lower today although she remains on high flow oxygen??with a flow rate of 35 L/min??and an FiO2 of 75% HEENT: Normocephalic; normal facial movements; extraocular muscle movements apparently normal; necksupple without adenopathy; no evidence of thyromegaly or nodularity Cardiovascular: S1-S2; ??no noted murmurs, rubs or gallops Pulmonary: Reduced air movement bilaterally??with??wheezing and rhonchi bilaterally;??high flow oxygen in place; able to speak in complete sentences Abdomen: Soft, nontender with no guarding; no organomegaly; nondistended Skin: Warm and dry; no rashes Neurological: Moves all extremities; no focal deficits; cranial nerves 3, 4, 6, 7, 8, 11, and 12 within normal limits Musculoskeletal: No edema; no obvious arthropathy Psych: Alert and interactive; mildly anxious with??current illness Assessment/Plan 1.??Pneumonia??J18.9 1.??Pneumonia??J18.9 Was able to get a CTA of her chest on 05/04/2022??which showed no evidence of pulmonary embolus??but a pattern??of inflammation felt most??consistent with COVID.?? She was negative for COVID but positive for flu when she came in.?? Repeat COVID test was negative today. ?? I was able to discuss her case with Dr. Regalado??of pulmonology at [facility].?? She notes that??in an ideal world??given her??high oxygen requirement she would be at an ICU.?Given the appearance ofher lungs on the CT scan that was done??today??a bronchoscopy??would be indicated.?? I did call??[facility] and??[facility] but neither have any ICU beds??available. ?? Dr. Regalado had recommended that I change her antibiotic regimen from??ceftriaxone and??azithromycin to??cefepime, Flagyl, and azithromycin??which I have done. ?? She also recommends??sending for a serum Fungitell,??Blastomyces antibody,??histoplasma antibody,??p-ANCA, c-ANCA, MPO,??DE-3,??cryptococcal antigen,??and Aspergillus antigen.?? These tests have beenordered??but will take some time to return as they are all send out test. ?? Patient is originally from [place] but has lived in [facility] [place] [facility] now for??19 years.?? She has never traveled??to the [place] or much in this world.?? She has 1 dog and no??chronic bird exposures.?? She does continue to smoke half??pack to 1??pack/day of cigarettes. ?? She does continue to be able to speak in complete sentences??and today looks reasonably comfortablealthough continues to??be using??high flow oxygen at??35 L a minute??with??80% FiO2.?? This is downfrom 90% FiO2, though her requirements have been somewhat variable. ?? Dr. Regalado was able to find??a??stress echo in 2019 which showed normal??ejection fraction of 70% and??good exercise tolerance. ?? 2.??Respiratory failure??J96.90 ??She does have diagnosed flu??but we have not??definitively diagnosed any other condition.?? Will await??the??antigen testing.?? Dr. Regalado had noted that??most of these are not definitive without??bronchoscopic data??but it might be suggestive and we might treat??empirically if she is not improving??if we find a suggestive??antigen test. ?? We will check an echo and we can??though this may not be until Friday of next week, given the longiday weekend. ?? 3.??Acute kidney injury??N17.9 Creatinine continues to improve. ??It has not improved from yesterday??but she did get contrast andwe have been diuresing her??to be sure that volume overload is not playing a role in her symptoms. ?? 4.??Dehydration, severe??E86.0 Have stopped IV fluids.?? On exam she is euvolemic although her lung exam is sort of tricky.?? She has no peripheral edema.?? Her BNP was elevated??which may be from volume overload. ??We will recheck tomorrow. ?? 5.??Hypoxia??R09.02 Still requiring high flow oxygen. ?? 6.??Anxiety??F41.9 ??Lorazepam was added to her regimen on 05/01/2020 ?? 7.??Hypertensive disorder??I10 Blood pressures well controlled today. ?? 8. ??Elevated blood sugar I will reduce her Solu-Medrol to a total of??60 mg a day today.?? Pulmonology felt we can stop thisbut as she is improving slowly I am a little worried about??stopping this completely, but will taper it. 2.??Respiratory failure??J96.90 3.??Acute kidney injury??N17.9 4.??Dehydration, severe??E86.0 5.??Hypoxia??R09.02 6.??Anxiety??F41.9 7.??Hypertensive disorder??I10 9.??Elevated blood sugar??R73.9 Orders: cefepime, 2 g = 1 EA, IV Piggyback, Powder-Inj, every 8 hr, Antibiotic Indication Pneumonia- CAP, Administer over: 0.5 hr, First Dose: 05/04/22 15:00:00 EST, Routine, 200 mL/hr enoxaparin, 40 mg = 0.4 mL, Subcutaneous, Soln, every night at bedtime, First Dose: 05/04/22 21:00:00 EST, Routine furosemide, 20 mg = 2 mL, IV Push, Soln-IV, Daily for 30 days, First Dose: 05/05/22 9:00:00 EST, Stop Date: 06/04/22 8:59:00 EST, Physician Stop, Routine SOLU-Medrol, 20 mg = 0.5 EA, IV Push, Powder-Inj, every 8 hr, First Dose: 05/05/22 10:00:00 EST, Stop Date: 05/05/22 12:00:00 EST, Physician Stop, Routine metroNIDAZOLE, 500 mg = 100 mL, IV Piggyback, Soln-IV, every 6 hr, Antibiotic Indication Pneumonia-CAP, Administer over: 0.5 hr, First Dose: 05/04/22 15:00:00 EST, Routine, 200 mL/hr 1,1-Uune-H-Glucan (Fungitell), S RENO, Blood, Routine, 05/04/22 14:59:00 EST, Once, Lab Collect ANCA Vasculitis Panel, S RENO, Blood, Routine, 05/04/22 14:59:00 EST, Once, Lab Collect Aspergillus (Galactomannan) Ag, S RENO, Blood, Routine, 05/04/22 15:00:00 EST, Once, Lab Collect Basic Metabolic Panel, Blood, Routine, 05/06/22 7:00:00 EST, every morning, for 3 days, Lab Collect C-Reactive Protein High Sensitivity, Blood, Routine, 05/06/22 7:00:00 EST, Daily, for 3 days, Lab Collect Cardiac Monitoring, 05/04/22 16:25:00 EST CBC w/o Diff, Blood, Routine, 05/06/22 7:00:00 EST, every morning, for 3 days, Lab Collect Cryptococcus Ag Titer RENO, Blood, Routine, 05/04/22 15:00:00 EST, Once, Lab Collect Echocardiogram Complete, 05/07/22 8:00:00 EST, Stop date 05/07/22 8:00:00 EST Histoplasma Ab, S RENO, Blood, Routine, 05/04/22 15:00:00 EST, Once, Lab Collect NT- Pro BNP, Blood, Routine, 05/06/22 7:00:00 EST, Once, Lab Collect Disposition:??Does seem to be making some progress toward recovery.?? She??continues to be at risk for decompensation??which would require??intubation and transfer. Electronically Signed on 05/05/22 10:04 AM Jatin Steele DO * Jatin Steele DO: PERFORM Event Display: Progress Note - Physician Authored Date: [id number] CHANDU DUTTA :1955 Age:67 years Sex:Female Visit Date:04/30/2022 Primary Care Physician: Mary Gaspar SKIN LAP BONDER Subjective Creatinine clearance is up to??32 today??and she was able to get a CTA chest. ?? BNP remains elevated. ?? CTA chest today did not reveal evidence of a pulmonary embolus but shows??advanced??inflammation ofthe lungs. ?? She is not feeling much better although at least has been stable. ? Review of Systems Does have some chest pain with coughing. ??Denies palpitations, dizziness, headaches, sudden visualchanges, cough, or new peripheral edema. Objective Vitals & Measurements T:??37.0?C ??(Temporal Artery)?? TMIN:??36.6?C ??(Temporal Artery)?? TMAX:??37?C ??(Temporal Artery)?? HR:??86??(Monitored)?? RR:??24?? BP:??136/61?? SpO2:??89%?? WT:??57.4??kg?? Pain Score:??0?? O2 Flow Rate:??35?? O2 Therapy:??High-Flow nasal cannula?? Physical Exam General: Alert and oriented woman who appears stated age in??some distress with shortness of breath??and tachypnea HEENT: Normocephalic; normal facial movements; extraocular muscle movements apparently normal; necksupple without adenopathy; no evidence of thyromegaly or nodularity Cardiovascular: S1-S2; ??no noted murmurs, rubs or gallops Pulmonary: Reduced air movement bilaterally??with??wheezing and rhonchi bilaterally;??high flow oxygen in place; able to speak in complete sentences Abdomen: Soft, nontender with no guarding; no organomegaly; nondistended Skin: Warm and dry; no rashes Neurological: Moves all extremities; no focal deficits; cranial nerves 3, 4, 6, 7, 8, 11, and 12 within normal limits Musculoskeletal: No edema; no obvious arthropathy Psych: Alert and interactive; mildly depressed with??current illness [1] Assessment/Plan 1.??Pneumonia??J18.9 1.??Pneumonia??J18.9 Was able to get a CTA of her chest today??which showed no evidence of pulmonary embolus??but a pattern??of inflammation consistent with COVID.?? She was negative for COVID but positive for flu when she came in.?? Repeat COVID test was negative today. ?? I was able to discuss her case with Dr. Regalado??of pulmonology at [facility].?? She notes that??in an ideal world??given her??high oxygen requirement she would be at an ICU.?? Given the appearance of her lungs on the CT scan that was done??today??a bronchoscopy??would be indicated.?? I did call??[facility] and??[facility] but neither have any ICU beds??available. ?? Dr. Regalado had recommended that I change her antibiotic regimen from??ceftriaxone and??azithromycin to??cefepime, Flagyl, and azithromycin??which I have done. ?? She also recommends??sending for a serum Fungitell,??Blastomyces antibody,??histoplasma antibody,??p-ANCA, c-ANCA, MPO,??DE-3,??cryptococcal antigen,??and Aspergillus antigen.?? These tests have beenordered. ?? She also recommended retesting for COVID??which we have done with negative results. ?? Patient is originally from [place] but has lived in [place] now for??19 years.?? She is never traveled??to the [place] or much in this world.?? She has 1 dog and no??chronic bird exposures.?? She does continue to smoke half??pack to 1??pack/day of cigarettes. ?? She does continue to be able to speak in complete sentences??and today looks reasonably comfortablealthough continues to??be using??high flow oxygen at??35 L a minute??with??80% FiO2.?? This is downfrom 90% FiO2, though her requirements have been somewhat variable. ?? Dr. Regalado was able to find??a??stress echo in 2019 which showed normal??ejection fraction of 70% and??good exercise tolerance. ?? 2.??Respiratory failure??J96.90 ??She does have diagnosed flu??but we have not??definitively diagnosed any other condition.?? Will await??the??antigen testing.?? Dr. Regalado had noted that??most of these are not definitive without??bronchoscopic data??but it might be suggestive and we might treat??empirically if she is not improving??if we find a suggestive??antigen test. ? 3.??Acute kidney injury??N17.9 Creatinine continues to improve.?? We will continue to follow. ?? 4.??Dehydration, severe??E86.0 Have stopped IV fluids.?? Her??dehydration seems to have resolved and she is now??relatively volumeoverloaded. ?? 5.??Hypoxia??R09.02 Still requiring high flow oxygen. ?? 6.??Anxiety??F41.9 ??Lorazepam was added to her regimen on 05/01/2020 ?? 7.??Hypertensive disorder??I10 ??Blood pressure??has been elevated.?? We are??holding her??usual antihypertensives because??of their??renal effects.?We did start amlodipine. ?? 8. ??Elevated blood sugar Hopefully we can start to reduce her??steroid dosing soon??but she is now on??a low-dose of i??long-acting insulin and a sliding scale. She does have a history of somewhat elevated sugars and??an A1cof 6.1% in the past but her most recent by her report was??5.1%. 2.??Respiratory failure??J96.90 3.??Acute kidney injury??N17.9 4.??Dehydration, severe??E86.0 5.??Hypoxia??R09.02 6.??Anxiety??F41.9 7.??Hypertensive disorder??I10 9.??Elevated blood sugar??R73.9 Orders: cefepime, 2 g = 1 EA, IV Piggyback, Powder-Inj, every 8 hr, Antibiotic Indication Pneumonia- CAP, Administer over: 0.5 hr, First Dose: 05/04/22 15:00:00 EST, Routine, 200 mL/hr enoxaparin, 40 mg = 0.4 mL, Subcutaneous, Soln, every night at bedtime, First Dose: 05/04/22 21:00:00 EST, Routine furosemide, 20 mg = 2 mL, IV Push, Soln-IV, Daily for 30 days, First Dose: 05/05/22 9:00:00 EST, Stop Date: 06/04/22 8:59:00 EST, Physician Stop, Routine Lasix, 20 mg = 2 mL, IV Push, Soln-IV, Once, First Dose: 05/04/22 19:00:00 EST, Stop Date: 05/04/2219:00:00 EST, Physician Stop, Routine SOLU-Medrol, 40 mg = 1 EA, IV Push, Powder-Inj, every 6 hr, First Dose: 05/04/22 15:00:00 EST, StopDate: 05/05/22 12:00:00 EST, Physician Stop, Routine metroNIDAZOLE, 500 mg = 100 mL, IV Piggyback, Soln-IV, every 6 hr, Antibiotic Indication Pneumonia-CAP, Administer over: 0.5 hr, First Dose: 05/04/22 15:00:00 EST, Routine, 200 mL/hr 1,0-Rduz-P-Glucan (Fungitell), S RENO, Blood, Routine, 05/04/22 14:59:00 EST, Once, Lab Collect ANCA Vasculitis Panel, S RENO, Blood, Routine, 05/04/22 14:59:00 EST, Once, Lab Collect Aspergillus (Galactomannan) Ag, S RENO, Blood, Routine, 05/04/22 15:00:00 EST, Once, Lab Collect Cardiac Monitoring, 05/04/22 16:25:00 EST Cryptococcus Ag Titer RENO, Blood, Routine, 05/04/22 15:00:00 EST, Once, Lab Collect Diet Order, 05/03/22 21:23:00 EST, Diabetic, Low (1,200-1,600 valdez) 60g CHO Echocardiogram Complete, 05/07/22 8:00:00 EST, Stop date 05/07/22 8:00:00 EST Histoplasma Ab, S RENO, Blood, Routine, 05/04/22 15:00:00 EST, Once, Lab Collect Electronically Signed on 05/04/22 06:27 PM Jatin Steele DO * Jatin Steele DO: PERFORM Event Display: Progress Note - Physician Authored Date: [id number] CHANDU DUTTA :1955 Age:67 years Sex:Female Visit Date:04/30/2022 Primary Care Physician: Mary Gaspar SKIN LAP BONDER Subjective Breathing has been variable.?? She is continuing to require high flow oxygen??but was looking more comfortable this afternoon as she was out of bed to chair. ?? Creatinine continues to improve. ??She did get another dose of Lasix today to follow-up in the 1 given yesterday. ?? We are replacing her potassium. ?? Blood sugar has been high??due to the steroid and I have added a long-acting insulin??which can be increased if needed??and sliding scale insulin. ?? Chest x-ray this morning did show??worsening picture??with a differential including??pulmonary edema, ARDS,??and??multifocal pneumonia.?? She has been getting fluid to support her kidney function given her initial dehydration??but now has??had 2 doses??of Lasix. Review of Systems Dyspnea remains prominent.?? Denies chest pain, palpitations, dizziness, headaches, sudden visual changes, cough, or new peripheral edema. Objective Vitals & Measurements T:??36.9?C ??(Temporal Artery)?? TMIN:??36.2?C ??(Temporal Artery)?? TMAX:??37.1?C ??(Temporal Artery)?? HR:??84??(Peripheral)?? RR:??19?? BP:??126/59?? BP:??143/71(Supine)?? SpO2:??99%??Pain Score:??1?? O2 Flow Rate:??30?? O2 Therapy:??High-Flow nasal cannula?? Physical Exam General: Alert and oriented woman who appears stated age in??some distress with shortness of breath??and tachypnea HEENT: Normocephalic; normal facial movements; extraocular muscle movements apparently normal; necksupple without adenopathy; no evidence of thyromegaly or nodularity Cardiovascular: S1-S2; ??no noted murmurs, rubs or gallops Pulmonary: Reduced air movement bilaterally??with??wheezing and rhonchi bilaterally Abdomen: Soft, nontender with no guarding; no organomegaly; nondistended Skin: Warm and dry; no rashes Neurological: Moves all extremities; no focal deficits; cranial nerves 3, 4, 6, 7, 8, 11, and 12 within normal limits Musculoskeletal: No edema; no obvious arthropathy Psych: Alert and interactive; mildly depressed with??current illness Assessment/Plan 1.??Pneumonia??J18.9 1.??Pneumonia??J18.9 She remains on azithromycin and ceftriaxone. ??She had been suffering??with fevers. ??She is on renally dosed??Tamiflu??for??influenza. ?? May need to define??her anatomy with advanced imaging??but ideally we can do this with??contrast toassess her blood vessels??given the elevated D-dimer.?? By Wells criteria for PE she does have a moderate risk??if we presume she has been??relatively immobile with her recent??illness. ?? Creatinine has continued to improve??but her creatinine clearance??today is still??29.?? She was somewhat??overdosed on admission with DVT prophylaxis Lovenox??at 40 mg daily??but given her low??creatinine clearance at that time that was basically a therapeutic dose.?? Her therapeutic dose now??based on her creatinine clearance??is 1 mg/kg daily, and as her??weight is 49 kg??she is on 50 units.??It seems unlikely she would have developed??a??PE on essentially??full dose anticoagulation??but ifshe does not recover??and her kidneys continue??to improve??we will get her set up for a CT angiogram of her lungs tomorrow. ?? 2.??Respiratory failure??J96.90 ??She does have diagnosed flu??and does look like she is developing pneumonia on??chest x-ray??thuswe started??antibiotics on 05/01/2022. ??She is on methylprednisolone??and renally dosed??Tamiflu. ?? We will repeat the chest x-ray tomorrow. ?? 3.??Acute kidney injury??N17.9 Creatinine is improving and we stopped IV fluids today with a concern that she is getting fluid overloaded.?? BNP was elevated at??5649.?? We will check a BNP tomorrow. ?? 4.??Dehydration, severe??E86.0 Did have to stop IV fluids yesterday with concern of volume overload.?? Continue to follow creatinine of course. ?? 5.??Hypoxia??R09.02 May be multifactorial??and will try to diurese her to some degree.?? BNP was??substantially higher yesterday than on admission. ??She did get a dose of yesterday and??this morning and seems to be breathing better now. ?? 6.??Anxiety??F41.9 ??Lorazepam was added to her regimen on 05/01/2020 ?? 7.??Hypertensive disorder??I10 ??Blood pressure??has been elevated.?? We are??holding her??usual antihypertensives because??of their??renal effects.?We did start amlodipine. ?? 8. ??Elevated blood sugar Hopefully we can start to reduce her??steroid dosing soon??but she is now on??a low-dose of i??long-acting insulin and a sliding scale. 2.??Respiratory failure??J96.90 3.??Acute kidney injury??N17.9 4.??Dehydration, severe??E86.0 5.??Hypoxia??R09.02 6.??Anxiety??F41.9 7.??Hypertensive disorder??I10 9.??Elevated blood sugar??R73.9 Orders: glucagon, 1 mg = 3 mL, IM, Powder-Inj, As Directed, PRN low blood sugar, First Dose: 05/03/22 8:43:00 EST, Routine Lantus, 10 units = 0.1 mL, Subcutaneous, Soln, every morning for 30 days, First Dose: 05/03/22 9:00:00 EST, Stop Date: 06/02/22 7:59:00 EST, Physician Stop, Routine insulin lispro (HumaLog) correction- sensitive, Sensitive Scale, Subcutaneous, Soln, QID([facility]), First Dose: 05/03/22 11:30:00 EST, Routine potassium chloride, 20 mEq = 1 tab, Oral, Tab-ER, BID, First Dose: 05/03/22 21:00:00 EST, Routine Basic Metabolic Panel, Blood, Routine, 05/03/22 14:48:00 EST, every morning, for 3 days, Lab Collect Blood Glucose Monitoring POC, 05/03/22 8:43:00 EST, QID([facility]HS), 05/03/22 11:30:00 EST CBC w/o Diff, Blood, Routine, 05/03/22 14:48:00 EST, every morning, for 3 days, Lab Collect Dietary Supplements, 05/03/22 11:29:00 EST, Boost, ALL, Breakfast Lunch Dinner, 4 ounce vanillaboost with meals NT- Pro BNP, Blood, Routine, 05/04/22 7:00:00 EST, Once, Lab Collect XR Chest 1 View, 05/04/22 8:00:00 EST, Routine, Reason: resp failure, Transport Mode: Portable, Patient on O2, Exam to be performed outside organization? Disposition:??At this point she is not clearly improving??but I expect part of this was??fluid overload??which she was more sensitive to than expected.?? Hopefully she will start to make??strides towards improvement??in the next few days. Electronically Signed on 05/03/22 02:51 PM Jatin Steele DO History and physical note * Annmarie Vargas [employer]DER: PERFORM, MODIFY, MODIFY, MODIFY, MODIFY, MODIFY, MODIFY, MODIFY, MODIFY, MODIFY, MODIFY, MODIFY, MODIFY, MODIFY, MODIFY Event Display: History and Physical Authored Date: [id number] CHANDU DUTTA :1955 Age:67 years Sex:Female Visit Date:04/30/2022 Primary Care Physician: Mary Gaspar [employer]DER Chief Complaint Pt sent from [facility], SOB, green phlegm, negative COVID and flu tests, pt reports feversof 103. Chest pain r/t coughing, I feel I broke my ribs. History of Present Illness This is a 67 -year-old with past medical and surgical history significant for anxiety, carpal tunnel syndrome, diverticular disease of colon, GERD, poliomyelitis, hyperlipidemia, hypertension, left bundle branch hemiblock, low back pain, muscle weakness, old myocardial infarction, prolapse of vaginal vault after hysterectomy, spasm, colonoscopy, epiglottidectomy, abdominoplasty and multiple othersurgeries.?? This patient presented with complaint of poor appetite and not being able to eat for 3days, diarrhea and shortness of breath.?? This patient presented to the emergency room reported O2 saturation of 83% in room air, she has no history of COPD or asthma, however she stated that she hasbeen having a cough that seem to subside her appetite for more than few days.?? In the emergency room 4 L of nasal cannula of oxygen applied that increase her saturation to 95-96%. Lab work done, WBC10.6, RBC 4.3, hemoglobin 13.5, However patient's baseline creatinine noted at 1.0 and June 2021. ??hematocrit 39.4, platelet 186, electrolytes are abnormal such as sodium 129, potassium 3.2, chloride 96, CO2 16, acute kidney injury and dehydration noted as evidenced by BUN 62, creatinine 4.8.?? proBNP noted at 675 and COVID-19 nondetected.?? Chest x-ray was done and it shows prominent interstitial marking without focal consolidation. ED provider treated patient with Toradol for pain and DuoNeb for hypoxia then call hospitalist to admit patient for acute kidney injury, dehydration, hypoxia, and diarrhea caused by electrolyte imbalance. Review of Systems A 14 point review of system completed, all pertinent findings are negative except as stated above in HPI. Physical Exam Vitals & Measurements T:??36.8?C ??(Temporal Artery)?? TMIN:??36.8?C ??(Temporal Artery)?? TMAX:??36.9?C ??(Temporal Artery)?? HR:??80??(Peripheral)?? HR:??79??(Monitored)?? RR:??19?? BP:??128/58?? SpO2:??94%?? HT:??155.000??cm?? WT:??49.00??kg??(Estimated)?? Pain Score:??10?? O2 Flow Rate:??4?? O2 Therapy:?? Nasal cannula?? General appearance: Appears well-nourished, well-developed seems to??be in no acute ??respiratory distress. HEENT: Normocephalic, atraumatic, pupils are equal, round, reactive to light and accommodation, sclera and conjunctive is normal, oral mucosa is normal pink and moist, nasal septum midline, no deviation, neck is supple, trachea is midline. Pulmonary: Lung sounds are clear but diminished on auscultation, no adventitious sounds. Cardiovascular: Sinus rhythm, S1 and S2 is present. Abdomen: soft, nontender, bowel sound present all 4 quadrants. Skin: Generalized skin is intact, no redness, excoriation, lesion, or bruises noted.?? Skin turgor is greater than 3 seconds. Extremities: Bilateral lower extremities hair are evenly distributed, active range of motion. No edema noted to bilateral lower extremities with adequate perfusion. : Deferred Neurological: Alert and oriented x3, cranial nerve II through X are intact: Psych: Quiet, Normal affect. Assessment/Plan Acute kidney injury??N17.9 Acute kidney injury as evidenced by creatinine of 4.8, patient baseline creatinine was 1.0 in June of this year.?? This acute kidney injury is likely related to dehydration by not being able to consume any p.o. intake for more than 3 days and depletion of electrolyte via diarrhea for 5 days.?? Normal saline 250 mL was giving in the ED and maintenance at 125 mL/h.?? Will monitor chemistry nextchemistries at 10 PM tonight. If kidney enzyme does not and prove any a.m., we will obtain a renal ultrasound in a.m. Ordered: PSO Admit to Inpatient, Semi-Private Telemetry, Inpatient, Annmarie Vargas [employer]DER, 04/30/22 19:39:00 EST, 04/30/22 19:39:00 EST, 04/30/22 19:39:00 EST, 2 midnights or more ?? Dehydration, severe??E86.0 Dehydration in the setting of lack of p.o. intake for 3 days also and diarrhea for 5 days. will replace fluid intake with normal saline as noted above. Ordered: PSO Admit to Inpatient, Semi-Private Telemetry, Inpatient, Annmarie Vargas [employer]DER, 04/30/22 19:39:00 EST, 04/30/22 19:39:00 EST, 04/30/22 19:39:00 EST, 2 midnights or more ?? Hypoxia??R09.02 Hypoxia as evidence by saturation of 83%, patient is not on home O2 and has no history of COPD or asthma or any upper respiratory disease.?? 4 L of nasal cannula applied that helped the saturation went up to 95-96%.?? We will continue with oxygen treatment and respiratory therapist also consulted for eval and treatment and incentive spirometer also ordered.?? Patient is negative for flu, COVID and checks x-ray shows no acute respiratory disease. ?? Electrolyte imbalance: Electrolyte imbalance as evidence by sodium 129, potassium 3.2, chloride 96 and CO2 16.?? Potassiumwas replaced with potassium 40 mEq p.o. x1, sodium is being fixed with normal saline, 250 mL givingbolus and maintenance at 125 cc/h.?? Will repeat a chemistry at 10 PM.?? And monitor chemistry daily. ?? Diarrhea: Patient reported diarrhea for a period of 5 days which is likely one of the cause of her dehydration.?? Before treating the diarrhea will obtain a C. difficile test, oval and parasite test as well asa fecal pathogen to rule out any GI disease. ?? DVT prophylaxis with Lovenox, GI prophylaxis with PPI CODE STATUS: Full code Home medications reconciled. Ordered: PSO Admit to Inpatient, Semi-Private Telemetry, Inpatient, Annmarie Vargas [employer]DER, 04/30/22 19:39:00 EST, 04/30/22 19:39:00 EST, 04/30/22 19:39:00 EST, 2 midnights or more ?? Orders: acetaminophen, 650 mg = 2 tab, Oral, Tab, every 6 hr, PRN pain, First Dose: 04/30/22 19:44:00 EST, STAT enoxaparin, 40 mg = 0.4 mL, Subcutaneous, Soln, every 24 hr, First Dose: 04/30/22 19:44:00 EST, NOW lidocaine 1% injectable solution, 5 mg 0.5 mL, Intradermal, Soln, As Directed, PRN other (see comment), First Dose: 04/30/22 19:44:00 EST, STAT ondansetron, 4 mg = 2 mL, IV Push, Soln, every 6 hr, PRN nausea/vomiting, First Dose: 04/30/22 19:44:00 EST, STAT pantoprazole, 40 mg = 1 EA, IV Push, Powder-Inj, Daily, First Dose: 04/30/22 19:44:00 EST, STAT polyethylene glycol 3350, 17 g = 1 packets, Oral, Powder-Recon, Daily, PRN constipation, First Dose: 04/30/22 19:44:00 EST, STAT senna, 8.6 mg = 1 tab, Oral, Tab, BID, First Dose: 04/30/22 19:44:00 EST, STAT Normal Saline Flush, 10 mL, IV Push, Soln, every 12 hr (omar), First Dose: 04/30/22 19:44:00 EST, STAT Sodium Chloride 0.9% 1,000 mL, Total Volume (mL): 1,000, 1,000 mL, Soln-IV, IV, 30 mL/hr, Start Date: 04/30/22 19:44:00 EST, 49 kg, Populate Charting Weight From Order, 1.45, m2 Sodium Chloride 0.9% 1,000 mL, Total Volume (mL): 1,000, 1,000 mL, Soln-IV, IV, 125 mL/hr, Start Date: 04/30/22 19:39:00 EST, 49 kg, Populate Charting Weight From Order, 1.45, m2 Basic Metabolic Panel, Blood, Routine, 05/01/22 7:00:00 EST, every morning, for 3 days, Lab Collect Cardiac Monitoring, 04/30/22 19:44:00 EST, Telemetry CBC w/o Diff, Blood, Routine, 05/01/22 7:00:00 EST, every morning, for 3 days, Lab Collect Diet Order, 04/30/22 19:44:00 EST, Regular Incentive Spirometry Respiratory, Routine, As Directed, Other (please specify), 10-15 times q 1hr while awake Notify Provider of Vital Signs, 04/30/22 19:44:00 EST, SpO2 < 92% on 2L O2 NC, T > 101.5, HR > 100, HR < 50, SBP greater than 160, SBP less than 90, DBP greater than 90, DBP less than 50,Resp Rate greater than 30, Resp Rate less than 8 Oxygen Therapy, SpO2 goal 90% or greater, PRN PT Evaluation and Treatment Acute., 04/30/22 19:44:00 EST, Once Resuscitation Status, 04/30/22 19:44:00 EST, Full Code RT Eval and Treat Protocol, Stop date 04/30/22 19:44:00 EST Saline Lock Insert, 04/30/22 19:44:00 EST, Once, Stop date 04/30/22 19:44:00 EST Up ad Isabell, 04/30/22 19:44:00 EST, Constant Order Vital Signs, 04/30/22 19:44:00 EST, Constant order, every 4 hrs Images XR Chest 1 View PROCEDURE INFORMATION:?? Exam: XR Chest?? Exam date and time: 04/30/2022 4:33 PM?? Age: 67 years old?? Clinical indication: Dyspnea? TECHNIQUE:?? Imaging protocol: Radiologic exam of the chest.?? Views: 1 view.? COMPARISON:?? CT CHEST LOW DOSE CA SCREENING 04/10/2022 9:41 AM? FINDINGS:?? Lungs: The pulmonary vasculature is not engorged. The interstitial?? markings are pronounced but no focal consolidation is seen.?? Pleural spaces: There are no pleural effusions visualized.?? Heart/Mediastinum: The heart is not enlarged.?? Bones/joints: There is a moderate scoliosis. There are healed right?? rib fractures.? IMPRESSION:?? Prominent interstitial markings without focal consolidation.? Report signed by: Jerry Low On 04/30/2022 ??16:47:17 ?? Result type:?XR Chest 1 View Result date:?April 30, 2022 16:33 EST Result status:?Auth (Verified) Result title:?XR Chest 1 View Performed by:?DomainUser, Generated on April 30, 2022 16:33 EST Verified by:?DomainUser, Generated on April 30, 2022 16:33 EST Encounter info:?[id number], [facility], Inpatient, 04/30/2022 -?? Contributor system:?[id number] Problem List/Past Medical History Ongoing Abnormal cytology findings Anxiety CTS (carpal tunnel syndrome) Cubital tunnel syndrome Diverticular disease of colon Gastroesophageal reflux disease H/O: poliomyelitis Hyperlipidemia Hypertensive disorder 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 Long-term current use of drug therapy Low back pain Muscle weakness Old myocardial infarction Pain in limb Pain in right arm Prolapse of vaginal vault after hysterectomy Spasm Historical Menopausal symptom Procedure/Surgical History ???Colonoscopy through stoma; with biopsy, single or multiple (12/13/2020)???gastritis, intact Manolo fundoplication (12/13/2020)???Epiglottidectomy (12/13/2020)???Repair of vaginal wall prolapse (procedure) (2019)???Hernia repair (procedure) (2018)???Excision, excessive skin and subcutaneous tissue (includes lipectomy), abdomen (eg, abdominoplasty) (includes umbilical transposition and fascial plication) (List separately in addition to code for primary procedure) (05/05/1996)???Surgical treatment of ectopic ; abdominal (05/05/1981)???Anesthesia for cardiac catheterization including coronary angiography and ventriculography (not to include [place]-Maxi catheter) Medications Inpatient acetaminophen, 650 mg= 2 tab, Oral, every 6 hr, PRN enoxaparin, 40 mg= 0.4 mL, Subcutaneous, every 24 hr lidocaine 1% injectable solution, 5 mg= 0.5 mL, Intradermal, As Directed, PRN Normal Saline Flush, 10 mL, IV Push, every 12 hr (omar) ondansetron, 4 mg= 2 mL, IV Push, every 6 hr, PRN pantoprazole, 40 mg= 1 EA, IV Push, Daily polyethylene glycol 3350, 17 g= 1 packets, Oral, Daily, PRN senna, 8.6 mg= 1 tab, Oral, BID Sodium Chloride 0.9% 1,000 mL, 1000 mL, IV Sodium Chloride 0.9% 1,000 mL, 1000 mL, IV Sodium Chloride 0.9% 1,000 mL, 1000 mL, IV Home aspirin 81 mg oral delayed release tablet Co Q-10 Collagen Plus Vitamin C cyclobenzaprine 10 mg oral tablet, 10 mg= 1 tab, Oral, TID losartan 100 mg oral tablet multivitamin adult, oral tablet Protonix 40 mg oral delayed release tablet, 40 mg= 1 tab, Oral, Daily rosuvastatin 10 mg oral tablet Senna-Time 8.6 mg oral tablet sertraline 50 mg oral tablet Vitamin D with Minerals oral tablet zolpidem 10 mg oral tablet Allergies amoxicillin-clavulanate atenolol lisinopril thiazide diuretics Social History Electronic Cigarette/Vaping Electronic Cigarette Use: Never. Tobacco Current everyday tobacco user Tobacco Use:. 1 pack per day per day. Family History Patient was adopted Tourette's syndrome: Son. Immunizations Vaccine Date Status SARS-CoV-2 (COVID-19) mRNA-1273 vaccine 08/29/2020 Recorded SARS-CoV-2 (COVID-19) mRNA-1273 vaccine 07/13/2020 Recorded tetanus/diphth/pertuss (Tdap) adult/adol 01/15/2007 Recorded Electronically Signed on 04/30/22 10:56 PM Annmarie Vargas [employer]DER Jatin Steele DO Discharge summary * Jatin Steele DO: PERFORM Event Display: Discharge Summary Authored Date: [id number] CHANDU DUTTA :1955 Age:67 years Sex:Female Visit Date:04/30/2022 Primary Care Physician: Mary Gaspar NP Hospital Course Discharge Summary ?? Date of admission:??04/30/2022 ?? Date of discharge:??05/05/2022 ?? Discharge diagnoses:??Influenza A, pneumonia, respiratory failure ?? Consultations:??Dr. Regalado??of [facility] pulmonology ?? Operations/procedures:??CT angio on??05/04/2022 which showed: ?? 1. New, extensive bilateral pulmonary airspace opacities, described?? above, which can be characteristic of COVID-19 pneumonia.?? Differential includes influenza/atypical pneumonia, acute?? hypersensitivity pneumonitis, organizing pneumonia, which may be due?? to a broad range of etiologies including drug toxicity and connective?? tissue disease. Distribution of parenchymal opacities is not?? predominantly dependent and consequently atypical for aspiration?? pneumonitis.?? 2. No pulmonary emboli within the main or segmental pulmonary?? arteries.?? 3. Thick-walled patulous esophagus, raises concern for reflux?? esophagitis versus other infectious/inflammatory process and poses?? aspiration risk. Hiatal hernia and bulky GE junction; correlate for?? symptoms. Advise GI consult and if warranted, consider esophagram or?? direct visualization? Summary of presentation and course ?? Subjective Seems??likely that she is making slow progress. ?? Pulmonology felt??we should probably??stop steroids today.?? As she is seem to make slow progress. ??I will??cut back but not stop them altogether.?? Will cut back from 160 mg a day to??60??of Solu-Medrol??in divided doses. ?? If she were to decompensate??she would need to be intubated and transferred to an ICU which would be the level of care recommended by??pulmonology.?? Unfortunately no beds at [facility] or [facility].?? I have not called??other ICUs??as she seems to be making some progress but if she decompensates we will certainly need to call around??though she likely need to go far field??if??recent past is prologue. ?? She is not unreasonably anxious about her circumstances. ?? I did send off the recommended??testing??yesterday??but this will take some time to return. ?Review of Systems ?Dyspnea remains her main complaint.?? Denies chest pain, palpitations, dizziness, headaches, sudden visual changes, cough, or new peripheral edema. Objective ?Vitals & Measurements ?T:??36.4?C ??(Temporal Artery)?? TMIN:??36.4?C ??(Temporal Artery)?? TMAX:??37.0?C ??(Temporal Artery)?? HR:??68??(Monitored)?? RR:??24?? BP:??130/70?? SpO2:??98%?? WT:??57.4??kg?? Pain Score:??0?? O2 Flow Rate:??35?? O2 Therapy:??High-Flow nasal cannula?Physical Exam ?General: Alert and oriented woman who appears stated age.?? Respiratory distress seems to be lower today although she remains on high flow oxygen??with a flow rate of 35 L/min??and an FiO2 of 75% HEENT: Normocephalic; normal facial movements; extraocular muscle movements apparently normal; necksupple without adenopathy; no evidence of thyromegaly or nodularity Cardiovascular: S1-S2; ??no noted murmurs, rubs or gallops Pulmonary: Reduced air movement bilaterally??with??wheezing and rhonchi bilaterally;??high flow oxygen in place; able to speak in complete sentences Abdomen: Soft, nontender with no guarding; no organomegaly; nondistended Skin: Warm and dry; no rashes Neurological: Moves all extremities; no focal deficits; cranial nerves 3, 4, 6, 7, 8, 11, and 12 within normal limits Musculoskeletal: No edema; no obvious arthropathy Psych: Alert and interactive; mildly anxious with??current illness Assessment/Plan 1.??Pneumonia??J18.9 ?1.??Pneumonia??JBernie Was able to get a CTA of her chest on 05/04/2022??which showed no evidence of pulmonary embolus??but a pattern??of inflammation felt most??consistent with COVID.?? She was negative for COVID but positive for flu when she came in.?? Repeat COVID test was negative today. ?? I was able to discuss her case with Dr. Regalado??of pulmonology at [facility].?? She notes that??in an ideal world??given her??high oxygen requirement she would be at an ICU.?Given the appearance ofher lungs on the CT scan that was done??today??a bronchoscopy??would be indicated.?? I did call??[facility] and??[facility] but neither have any ICU beds??available. ?? Dr. Regalado had recommended that I change her antibiotic regimen from??ceftriaxone and??azithromycin to??cefepime, Flagyl, and azithromycin??which I have done. ?? She also recommends??sending for a serum Fungitell,??Blastomyces antibody,??histoplasma antibody,??p-ANCA, c-ANCA, MPO,??DE-3,??cryptococcal antigen,??and Aspergillus antigen.?? These tests have beenordered??but will take some time to return as they are all send out tests. ?? Patient is originally from [place] but has lived in [place] now for??19 years.?? She has never traveled??to the [place] or much in this world.?? She has 1 dog and no??chronic bird exposures.?? She does continue to smoke half??pack to 1??pack/day of cigarettes a day, but I do not inhale. ?? She does continue to be able to speak in complete sentences??and today looks reasonably comfortablealthough continues to??be??need??high flow oxygen at??35 L a minute??with??80% FiO2 by Vapotherm device.?? This is down from 90% FiO2, though her requirements have been somewhat variable. ?? Dr. Regalado was able to find??a??stress echo in 2019 which showed normal??ejection fraction of 70% and??good exercise tolerance. ?2.??Respiratory failure??J96.90 ??She does have diagnosed flu??but we have not??definitively diagnosed any other condition.?? Will await??the??antigen testing.?? Dr. Regalado had noted that??most of these are not definitive without??bronchoscopic data??but it might be suggestive and we might treat??empirically if she is not improving??if we find a suggestive??antigen test. ?? We will check an echo when??we can??though this may not be until Friday of next week, given the long holiday weekend. ?3.??Acute kidney injury??N17.9 Creatinine continues to improve. ??It has not improved from yesterday??but she did get contrast andwe have been diuresing her??to be sure that volume overload is not playing a role in her symptoms. ?4.??Dehydration, severe??E86.0 Have stopped IV fluids.?? On exam she is euvolemic although her lung exam is sort of tricky.?? She has no peripheral edema.?? Her BNP was elevated??which may be from volume overload. ??We will recheck tomorrow. ?5.??Hypoxia??R09.02 Still requiring high flow oxygen. ?6.??Anxiety??F41.9 ??Lorazepam was added to her regimen on 05/01/2020 ?7.??Hypertensive disorder??I10 Blood pressures well controlled today. ?? 8. ??Elevated blood sugar I will reduce her Solu-Medrol to a total of??60 mg a day today.?? Pulmonology felt we can stop thisbut as she is improving slowly I am a little worried about??stopping this completely, but will taper it. ? Disposition:??Today she was excepted??with the advocacy of Dr. Regalado of pulmonology to [facility]??intensive care unit??which she is about to??transfer shortly.?? Very happy with Dr. [place]??was looking out for this very sick patient. ?? Greater than 30 minutes was spent on the day of discharge in coordinating care and arranging outpatient follow-up. Physical Exam Vitals & Measurements T:??36.7?C ??(Temporal Artery)?? TMIN:??36.4?C ??(Temporal Artery)?? TMAX:??36.8?C ??(Temporal Artery)?? HR:??77??(Monitored)?? RR:??20?? BP:??130/70?? SpO2:??100%?? WT:??57.5??kg?? Pain Score:??2?? O2 Flow Rate:??35?? O2 Therapy:??High-Flow nasal cannula?? Medications Inpatient !-DuoNeb, 3 mL, Inhale, QID RT !-Robitussin, 400 mg= 20 mL, Oral, every 4 hr, PRN acetaminophen, 650 mg= 2 tab, Oral, every 6 hr, PRN albuterol, 2.5 mg, Inhale, every 2 hr RT, PRN amLODIPine, 5 mg= 1 tab, Oral, Daily aspirin, 81 mg= 1 tab, Oral, Daily atorvastatin, 10 mg= 1 tab, Oral, Daily azithromycin budesonide 0.5 mg/2 mL inhalation suspension, 0.5 mg= 2 mL, NEB, BID RT cefepime cyclobenzaprine, 10 mg= 1 tab, Oral, TID enoxaparin, 40 mg= 0.4 mL, Subcutaneous, every night at bedtime furosemide, 20 mg= 2 mL, IV Push, Daily glucagon, 1 mg= 3 mL, IM, As Directed, PRN insulin lispro (HumaLog) correction- sensitive, Sensitive Scale, Subcutaneous, QID(ACHS) ipratropium-albuterol 0.5 mg-2.5 mg/3 mL inhalation solution, 3 mL, Inhale, every 4 hr RT, PRN Lantus, 10 units= 0.1 mL, Subcutaneous, every morning lidocaine 1% injectable solution, 5 mg= 0.5 mL, Intradermal, As Directed, PRN LORazepam, 0.5 mg= 1 tab, Oral, QID, PRN metroNIDAZOLE, 500 mg= 100 mL, IV Piggyback, every 6 hr Multiple Vitamins oral tablet, 1 tab, Oral, Daily Normal Saline Flush, 10 mL, IV Push, every 12 hr (omar) Lincoln-3 1000 mg oral capsule, 1000 mg= 1 cap, Oral, Daily ondansetron, 4 mg= 2 mL, IV Push, every 6 hr, PRN pantoprazole, 40 mg= 1 EA, IV Push, Daily polyethylene glycol 3350, 17 g= 1 packets, Oral, Daily, PRN potassium chloride, 20 mEq= 1 tab, Oral, BID senna, 8.6 mg= 1 tab, Oral, BID sertraline, 25 mg= 0.5 tab, Oral, Daily Sodium Chloride 0.9% 1,000 mL, 1000 mL, IV Tamiflu, 30 mg= 1 cap, Oral, Daily zolpidem, 10 mg= 2 tab, Oral, every night at bedtime, PRN Home !-DuoNeb, 3 mL, Inhale, QID RT albuterol 90 mcg/inh aerosol inhaler, 2.5 mg, Inhale, every 2 hr RT, PRN amLODIPine 5 mg oral tablet, 5 mg= 1 tab, Oral, Daily aspirin 81 mg oral delayed release tablet, 81 mg= 1 tab, Oral, Daily budesonide 0.5 mg/2 mL inhalation suspension, 0.5 mg= 2 mL, NEB, BID RT Co Q-10, 100 mg, Oral, Daily enoxaparin 40 mg/0.4 mL injectable solution, 40 mg= 0.4 mL, Subcutaneous, every night at bedtime insulin lispro 100 units/mL injectable solution, Sensitive Scale, Subcutaneous, QID(ACHS) ipratropium-albuterol 0.5 mg-2.5 mg/3 mL inhalation solution, 3 mL, Inhale, every 4 hr RT, PRN Lantus 100 units/mL subcutaneous solution, 10 units, Subcutaneous, every morning LORazepam 0.5 mg oral tablet, 0.5 mg= 1 tab, Oral, QID, PRN potassium chloride 20 mEq oral tablet, extended release, 20 mEq= 1 tab, Oral, BID rosuvastatin 10 mg oral tablet, 10 mg= 1 tab, Oral, every night at bedtime Senna-Time 8.6 mg oral tablet, 17.2 mg= 2 tab, Oral, every night at bedtime, PRN sertraline 25 mg oral tablet, 25 mg= 1 tab, Oral, Daily Tamiflu 30 mg oral capsule, 30 mg= 1 cap, Oral, Daily Vitamin D with Minerals oral tablet, 2 tab, Oral, Daily Vitamin D3 2000 intl units oral capsule, 50 mcg= 1 cap, Oral, Daily zolpidem 10 mg oral tablet, 10 mg= 1 tab, Oral, every night at bedtime, PRN Procedure/Surgical History ???Colonoscopy through stoma; with biopsy, single or multiple (12/13/2020)???gastritis, intact Manolo fundoplication (12/13/2020)???Epiglottidectomy (12/13/2020)???Repair of vaginal wall prolapse (procedure) (2019)???Hernia repair (procedure) (2018)???Excision, excessive skin and subcutaneous tissue (includes lipectomy), abdomen (eg, abdominoplasty) (includes umbilical transposition and fascial plication) (List separately in addition to code for primary procedure) (05/05/1996)???Surgical treatment of ectopic ; abdominal (05/05/1981)???Anesthesia for cardiac catheterization including coronary angiography and ventriculography (not to include [place]-Maxi catheter) Social History Electronic Cigarette/Vaping Electronic Cigarette Use: Never. Tobacco Current everyday tobacco user Tobacco Use:. 1 pack per day per day. Discharge Plan 1.??Pneumonia??J18.9 2.??Respiratory failure??J96.90 3.??Acute kidney injury??N17.9 4.??Dehydration, severe??E86.0 5.??Hypoxia??R09.02 6.??Anxiety??F41.9 7.??Hypertensive disorder??I10 9.??Elevated blood sugar??R73.9 Orders: albuterol 90 mcg/inh aerosol inhaler, 2.5 mg, Inhale, every 2 hr RT, PRN Air Hunger, 0 Refill(s) amLODIPine 5 mg oral tablet, 5 mg = 1 tab, Oral, Daily, 0 Refill(s) budesonide 0.5 mg/2 mL inhalation suspension, 0.5 mg = 2 mL, NEB, BID RT, 0 Refill(s) enoxaparin 40 mg/0.4 mL injectable solution, 40 mg = 0.4 mL, Subcutaneous, every night at bedtime, 0 Refill(s) furosemide, 20 mg = 2 mL, IV Push, Soln-IV, Daily for 30 days, First Dose: 05/05/22 9:00:00 EST, Stop Date: 06/04/22 8:59:00 EST, Physician Stop, Routine Lantus 100 units/mL subcutaneous solution, 10 units =, Subcutaneous, every morning, 0 Refill(s) insulin lispro 100 units/mL injectable solution, Sensitive Scale, Subcutaneous, QID(ACHS), 0 Refill(s) ipratropium-albuterol 0.5 mg-2.5 mg/3 mL inhalation solution, 3 mL, Inhale, every 4 hr RT, PRN wheezing, 0 Refill(s) !-DuoNeb, 3 mL, Inhale, QID RT, 0 Refill(s) LORazepam 0.5 mg oral tablet, 0.5 mg = 1 tab, Oral, QID, PRN anxiety, 0 Refill(s) Tamiflu 30 mg oral capsule, 30 mg = 1 cap, Oral, Daily, 0 Refill(s) potassium chloride 20 mEq oral tablet, extended release, 20 mEq = 1 tab, Oral, BID, 0 Refill(s) Basic Metabolic Panel, Blood, Routine, 05/06/22 7:00:00 EST, every morning, for 3 days, Lab Collect C-Reactive Protein High Sensitivity, Blood, Routine, 05/06/22 7:00:00 EST, Daily, for 3 days, Lab Collect Cardiac Monitoring, 05/04/22 16:25:00 EST CBC w/o Diff, Blood, Routine, 05/06/22 7:00:00 EST, every morning, for 3 days, Lab Collect Discharge Diet Instruction, Regular home diet Discharge Patient, 05/05/22 15:27:00 EST, Other (see instructions), Discharge to [facility] under the care of Dr. Zacarias Echocardiogram Complete, 05/07/22 8:00:00 EST, Stop date 05/07/22 8:00:00 EST NT- Pro BNP, Blood, Routine, 05/06/22 7:00:00 EST, Once, Lab Collect All Diagnoses This Visit Pneumonia Respiratory failure Acute kidney injury Dehydration, severe Hypoxia Anxiety Hypertensive disorder Elevated blood sugar Patient Education Acute Kidney Injury, Adult Follow Up With When Contact Information Follow up with primary care provider Within 1 month Additional Instructions: Medication Reconciliation New Prescription albuterol (albuterol 90 mcg/inh aerosol inhaler)2.5 Milligrams Inhale (breathe in) every 2 hours RTas needed Air Hunger. ?? amLODIPine (amLODIPine 5 mg oral tablet)1 tab Oral (given by mouth) every day. ?? budesonide (budesonide 0.5 mg/2 mL inhalation suspension)2 [place] Nebulized inhalation (inhaleusing nebulizer) 2 times a day. ?? enoxaparin (enoxaparin 40 mg/0.4 mL injectable solution)0.4 [place] Subcutaneous (under the skin) every night at bedtime. ?? insulin glargine (Lantus 100 units/mL subcutaneous solution)10 Units Subcutaneous (under the skin) every morning. ?? insulin lispro (insulin lispro 100 units/mL injectable solution)Sensitive Scale Subcutaneous (underthe skin) 4 times a day (before meals and at bedti. ?? ipratropium-albuterol (!-DuoNeb)3 [place] Inhale (breathe in) 4 times a day RT. ?? ipratropium-albuterol (ipratropium-albuterol 0.5 mg-2.5 mg/3 mL inhalation solution)3 [place] Inhale (breathe in) every 4 hours RT as needed wheezing. ?? LORazepam (LORazepam 0.5 mg oral tablet)1 tab Oral (given by mouth) 4 times a day as needed anxiety. ?? oseltamivir (Tamiflu 30 mg oral capsule)1 Capsules Oral (given by mouth) every day. ?? potassium chloride (potassium chloride 20 mEq oral tablet, extended release)1 tab Oral (given by mouth) 2 times a day. ?? Changed aspirin (aspirin 81 mg oral delayed release tablet)1 tab Oral (given by mouth) every day. ?? multivitamin with minerals (Vitamin D with Minerals oral tablet)2 tab Oral (given by mouth) every day. ?? rosuvastatin (rosuvastatin 10 mg oral tablet)1 tab Oral (given by mouth) every night at bedtime. ?? senna (Senna-Time 8.6 mg oral tablet)2 tab Oral (given by mouth) every night at bedtime as needed as needed for constipation. ?? sertraline (sertraline 25 mg oral tablet)1 tab Oral (given by mouth) every day. ?? ubiquinone (Co Q-10)100 Milligrams Oral (given by mouth) every day. ?? zolpidem (zolpidem 10 mg oral tablet)1 tab Oral (given by mouth) every night at bedtime as needed as needed for sleep. ?? Unchanged cholecalciferol (Vitamin D3 2000 intl units oral capsule)1 Capsules Oral (given by mouth) every day. ?? Discontinued cyclobenzaprine (cyclobenzaprine 10 mg oral tablet)1 tab Oral (given by mouth) 3 times a day. ?? losartan (losartan 100 mg oral tablet) ?? losartan (losartan 50 mg oral tablet)1 tab Oral (given by mouth) every day. ?? multivitamin (multivitamin adult, oral tablet) ?? Other Prescription (Collagen Plus Vitamin C)Take 3 tabs in am & 3 tabs in pm. ?? pantoprazole (Protonix 40 mg oral delayed release tablet)1 tab Oral (given by mouth) every day. ?? triamterene-hydrochlorothiazide (triamterene-hydrochlorothiazide 37.5mg-25mg oral capsule)1 Capsules Oral (given by mouth) every day. Electronically Signed on 05/05/22 03:34 PM Jatin Steele DO Patient Care team information Personnel Name: Mary Gaspar NP Address: Address: [address] [place] [address]
--- OUTSIDE RECORDS SUMMARY | 2023-05-23 10:48 | XMS_ITS | Continuity of Care Document ---
Author Name Unknown Organization [facility] Address [address] [place] [address] Care Team Providers Care City Clerk Name Role Phone Mary Gaspar Primary Care Physician [phone] Encounter [facility] Date(s): 02/11/23 - 02/11/[address] [address] Discharge Disposition: Home or Self Care Attending Physician: Mary Gaspar BURLAP MAN Admitting Physician: Mary Gaspar BURLAP MAN Referring Physician: Mary Gaspar BURLAP MAN Allergies, Adverse Reactions, Alerts Substance Reaction Severity [...] coronary angiography and ventriculography (not to include [place]-Maxi catheter) Completed 1@ [facility] 2Hiatal 2017 @ Social History Social History Type Response Tobacco Current everyday tob acco user Tobacco Use:. 1 pack per day per day. Sex Female Patient Care team information Care Team Personnel Name: Chute, Mary H BURLAP MAN Position: PowerChart View Only Member Role: Primary Care Physician Address: Address: [address] [place] [phone]- Care Team Related Persons Name: NATHAN DUTTA Address: Home [address] [place] [phone]
--- OUTSIDE RECORDS SUMMARY | 2023-05-23 10:48 | XMS_ITS | Continuity of Care Document ---
Author Name Unknown Organization [facility] Address [address] [place] [address] Care Team Providers Care Pheresis Nurse Name Role Phone Mary Gaspar Primary Care Physician Encounter [facility] [id number] Date(s): 04/10/22 - 04/10/[address] [address] Discharge Disposition: Home or Self Care Attending Physician: Nga Stein Admitting Physician: Nga Stein Referring Physician: Nga Stein PA-C Allergies, Adverse Reactions, Alerts Substance Reaction Severity [...] coronary angiography and ventriculography (not to include [place]-Maxi catheter) Completed 1@ [facility] 2Hiatal 2018 @ Social History Social History Type Response Sex Female Patient Care team information Personnel Name: Mary Gaspar BRAKE MACHINE OPERATOR Address: Address: [address] [place] [phone] [place]
--- OUTSIDE RECORDS SUMMARY | 2023-05-23 10:48 | XMS_ITS | Continuity of Care Document ---
Author Name Unknown Organization [facility] Address [address] [place] [address] Care Team Providers Care Shipping Associate Name Role Phone Mary Gaspar Primary Care Physician [phone] Encounter [facility] Date(s): 03/04/23 - 03/04/[address] [address] Encounter Diagnosis Carpal tunnel syndrome, right upper limb(Final) - Lesion of ulnar nerve, right upper limb(Final) - Discharge Disposition: Home or Self Care Attending Physician: Stan Walker MD Admitting Physician: Stan Walker MD Referring Physician: Mary Gaspar WEB CONSULTANT Allergies, Adverse Reactions, Alerts Substance Reaction Severity Status atenolol Unknown Active amoxicillin-clavulanate Unknown Acti ve lisinopril Unknown Active thiazide diuretics Unknown Active Assessment and Plan Future Appointments Functional Status 03/04/23 Anti-Embolism Device Activity: Applied 03/04/23 Recent Travel History No recent travel Immunizations Given and Recorded Vaccine Date Status Refusal Reason SARS-CoV-2 (COVID-19) mRNA-1273 vaccine 08/29/20 R ecorded SARS-CoV-2 (COVID-19) mRNA-1273 vaccine 07/13/20 R ecorded tetanus/diphth/pertuss (Tdap) adult/adol 01/15/07 Recorded Medications albuterol 90 mcg/inh aerosol inhaler 2.5 mg, Inhale, every 2 hr RT, PRN Air Hunger, 0 Refill(s) Start Date: 05/05/22 Status: Ordered ascorbic acid-collagen 0 Refill(s) Start Date: 02/21/23 Status: Ordered aspirin 81 mg oral delayed release tablet 81 mg = 1 tab, Oral, Daily, 0 Refill(s) Start Date: 10/12/21 Status: Ordered Co Q-10 100 mg =, Oral, Daily, 0 Refill(s) Start Date: 10/12/21 Status: Ordered losartan 100 mg oral tablet 0 Refill(s) Start Date: 03/04/23 Status: Ordered rosuvastatin 10 mg oral tablet 10 mg = 1 tab, Oral, every night at bedtime, 0 Refill(s) Start Date: 10/12/21 Status: Ordered senna 8.6 mg oral tablet 17.2 mg = 2 tab, Oral, Daily, PRN as needed for constipation, 0 Refill(s) Start Date: 02/21/23 Status: Ordered Senna-Time 8.6 mg oral tablet 17.2 mg = 2 tab, Oral, every night at bedtime, PRN as needed for constipation, 0 Refill(s) Start Date: 10/12/21 Status: Ordered sertraline 25 mg oral tablet 25 mg = 1 tab, Oral, Daily, # 90 tab, 0 Refill(s) Start Date: 05/01/22 Status: Ordered triamterene-hydrochlorothiazide 37.5 mg-25 mg oral tablet 1 tab, Oral, Daily, 0 Refill(s) Start Date: 02/21/23 Status: Ordered Turmeric 0 Refill(s) Start Date: 02/25/23 Status: Ordered Vitamin D with Minerals oral [...] Status Informant Abnormal cytology findings Confirmed Active Acute nontraumatic kidney injury Confirmed Active Anxiety Confirmed 01/13/20 Active Arthritis Confirmed Active Bilateral carotid bruits Confirmed Active CTS (carpal tunnel syndrome) Confirmed Active Arnold-Chiari malformation Confirmed Active Diverticular disease of colon Confirmed 01/13/20 Active Pedal edema Confirmed Active Gastric polyp Confirmed Active Gastroesophageal reflux disease Confirmed 01/13/20 Active Hx of hysterectomy Confirmed Active H/O: poliomyelitis Confirmed 01/13/20 Active Hx of non-ST elevation myocardial infarction (NSTEMI) Confirmed Active Type 2 diabetes mellitus with hyperglycemia Confirmed Active Hyperlipidemia Confirmed 01/13/20 Active Hypertensive disorder Confirmed 01/13/20 Active Insomnia Confirmed Active Iron deficiency anemia Confirmed Active Late effects of poliomyelitis Confirmed Active LBBB (left bundle branch block) Confirmed Active Left bundle branch hemiblock Confirmed 01/13/20 Active Cubital tunnel syndrome Confirmed Active Long-term current use of drug therapy Confirmed Active Low back pain Confirmed Active Mild aortic valve stenosis Confirmed Active Muscle weakness Confirmed Active Myositis Confirmed Active Old myocardial infarction Confirmed 01/13/20 Active Osteopenia Confirmed Active Pain in limb Confirmed Active Pain in right arm Confirmed Active 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 Spasm Confirmed Active Procedures Procedure Date Related Diagnosis Body Site Status Carpal tunnel release 03/03/23 Com pleted Neuroplasty and/or transposi tion; median nerve at carpal tunnel 03/03/23 Co mpleted Colonoscopy through stoma; w ith biopsy, single or multiple 12/13/20 Compl eted Epiglottidectomy 12/13/20 Complete d gastritis, intact Manolo [...] coronary angiography and ventriculography (not to include [place]-Maxi catheter) Completed 1@ [facility] [place] 2Hiatal 2017 @ Vital Signs Most recent to oldest [Reference Range]: 1 2 3 Temperature Temporal Artery [36-38 Deg C] 36 Deg C (03/04/23 10:55 AM) 36.5 Deg C (03/04/23 10:22 AM) 36.4 Deg C (03/04/23 8:54 AM) Temperature Temporal Artery (DegF) [97.3-100 Deg F] 96.8 Deg F *LOW* (03/04/23 10:55 AM) 97.7 Deg F (03/04/23 10:22 AM) Peripheral Pulse Rate [60-100 bpm] 62 bpm (03/04/23 10:55 AM) 57 bpm *LOW* (03/04/23 10:40 AM) 60 bpm (03/04/23 10:35 AM) Heart Rate Monitored [60-100 bpm] 61 bpm (03/04/23 10:55 AM) 59 bpm *LOW* (03/04/23 10:40 AM) 61 bpm (03/04/23 10:35 AM) Respiratory Rate [12-24 br/min] 14 br/min (03/04/23 10:55 AM) 8 br/min *LOW* (03/04/23 10:40 AM) 9 br/min *LOW* (03/04/23 10:35 AM) Blood Pressure [90-140/60-90 mmHg] 160/44mmHg *HI* (03/04/23 10:55 AM) 156/57mmHg *HI* (03/04/23 10:40 AM) 106/71mmHg (03/04/23 10:30 AM) Mean Arterial Pressure, Cuff [65-140 mmHg] 83 mmHg (03/04/23 10:55 AM) 90 mmHg (03/04/23 10:40 AM) 83 mmHg (03/04/23 10:30 AM) Mean Arterial Pressure Cuff 102 mmHg (03/04/23 8:54 AM) Blood Pressure Location Left arm (03/04/23 8:54 AM) Weight 51.7 kg (03/04/23 8:54 AM) Weight Dosing 51.700 kg (03/04/23 8:54 AM) Weight Estimated 49.00 kg (02/25/23 1:07 PM) Height 152 cm (03/04/23 8:54 AM) Body Mass Index 22.38 kg/m2 (03/04/23 8:54 AM) Social History Social History Type Response Tobacco Current everyday tob acco user Tobacco Use:. 1 pack per day per day. Sex Female Discharge instructions * Mellissa Matson: PERFORM Event Display: Discharge Instructions Authored Date: [id number] CHANDU DUTTA :1955 Age:68 years Sex:Female Visit Date:03/04/2023 Primary Care Physician: Mary Gaspar WEB CONSULTANT Hospital Discharge Instructions We would like to thank you for allowing us to assist you with your healthcare needs. The following includes patient education materials and information regarding your injury/illness. Your Next Steps Instructions From Your Care Team Orthopedic Surgery Discharge Instructions ok to take down carpal tunnel dressing down in 2 days and cover with band aid keep elbow dressing on until follow up in the office ?? Pain Control ?Take your pain relief medication when discomfort first begins. ?Can use stool softener while taking the narcotic to avoid problems with constipation. ?It is okay to start [id number] Naproxen or Ibuprofen??immediately ?? Call your doctor if you: ?Develop a fever over 101 degrees. ?Have increased redness, warmth, discharge, swelling, or hardness around the operative site. ?Circulation changes such as tingling, numbness or your fingers appear blue or white. ?Your pain is not adequately controlled, despite taking your pain medication routinely. ?? On the day of surgery, or while taking narcotic pain medication: No driving, operating power equipment,?? drinking alcohol,?? or taking mood altering drugs? Apply warm, moist compress to IV site if sore or red, for 20 minutes, 4 times a day, for 2-3 days.?? Call your doctor if IV site soreness or redness persists. In the event of any problems after surgery, contact your doctor or the Emergency Room @ . Ortho Office: [phone]?? Scheduled Future Appointments Friday 3:15 PM EST ?? With: María Wright PA-C Where: [facility] [address] [place] [address], [address] [place] [address] Status: Confirmed Your Summary Your Care Team Admitting Physician - Stan Walker MD Attending Physician - Stan Walker MD Primary Care Physician - Mary Gaspar NP Referring Physician - Chute, Mary H WEB CONSULTANT Discharge Vitals Temperature??(Temporal Artery) 97.7 ??F (36.5 ??C) Heart Rate??(Peripheral) 54 Heart Rate??(Monitored) 57 Respiratory Rate?? 8 Blood Pressure?? 106/71?? Blood Pressure?? 185/70(Sitting)?? Height?? 59.84 in (152 cm) Weight?? 114.00 lb (51.7 kg) BMI?? 22.38 Patient/Tennis Director Signature Patient Name:LUZMARIA CHANDU Keiko I have received this information and my questions have been answered. Patient/Tennis Director Name: Patient/Tennis Director Signature: Relationship to Patient: Witness Name/Signature: Date: Electronically Signed on: 03/04/2023 10:40 EDTSigned by:PAF History and physical note * Farida Villa: PERFORM Event Display: History and Physical Authored Date: [id number] CHANDU DUTTA :1955 Age:68 years Sex:Female Primary Care Physician: Mary Gaspar WEB CONSULTANT Visit Date:??02/20/2023 [1] Chief Complaint EPSP- Right CTS, EMG's done. ?? History of Present Illness No patient history of right carpal tunnel syndrome with positive electrodiagnostics.?? She has had this problem for??a prolonged period of time??and notes chronic findings??and constant numbness in??pre much all 5 digits. ?? Review of Systems Constitutional:?No??fevers,?No??chills,?No??sweats Eye:?No??recent visual problems ENT:?No??ear pain,?No??nasal congestion,?No??sore throat Respiratory:?No??shortness of breath,?No??cough Cardiovascular:?No??Chest pain,?No??palpitations,?No??syncope Gastrointestinal:?Nonausea,?No??vomiting,?No??diarrhea Genitourinary:?No??hematuria Chadd/Lymph:?No??bruising tendency,?No??swollen lymph glands Endocrine:?No??excessive thirst,??No??excessive hunger Musculoskeletal:??No??back pain,??No??neck pain,??No??joint pain,??No??muscle pain,??No??decreased range of motion Integumentary:?No??rash,?No??pruritus,?No??abrasions Neurologic: Alert & oriented X 4 Psychiatric:?No??anxiety,?No??depression ?? Physical Exam ?Vitals & Measurements ?HT:??155??cm?? WT:??52.30??kg?? BMI:??21.77?? BSA:??1.5?? Well-nourished well-developed acute distress alert and oriented. ??Stated age is normal elbow wristhand range of motion normal cap refill distally no open wound signs of erythema or infection.?? Mild findings of thenar atrophy two-point discrimination is elevated.?? Review of electrodiagnostics positive for??right carpal and cubital tunnel syndrome. ?? Assessment/Plan 1.??Cubital tunnel syndrome??G56.21 ?Right carpal and cubital tunnel syndrome options watchful waiting bracing therapy injection or surgical intervention for release after discussing this she wanted to have this operatively fixed??which I felt was very reasonable so we will set her up for that procedure and see her again at that time. ?Ordered: [facility] Surgery / Procedure Nursing Review Request., 02/20/23 12:17:00 EDTBrooklynn, Stan Butler MD, Carpal tunnel cubital tunnel right, Right carpal tunnel release ulnar nerve decompression possible transposition. Need 45 minutes. Anesthesia per choice. Date and time per poll clerk. BMI 22, Cubital t... ?? 3.??CTS (carpal tunnel syndrome)??G56.01 ?Ordered: [facility] Surgery / Procedure Nursing Review Request., 02/20/23 12:17:00 EDT, Brooklynn STILES, Stan Butler MD, Carpal tunnel cubital tunnel right, Right carpal tunnel release ulnar nerve decompression possible transposition. Need 45 minutes. Anesthesia per choice. Date and time per poll clerk. BMI 22, Cubital t... ?? Problem List/Past Medical History Ongoing ?Abnormal cytology findings ??Acute nontraumatic kidney injury ??Anxiety ??Arnold-Chiari malformation ??Arthritis ??Bilateral carotid bruits ??CTS (carpal tunnel syndrome) ??Cubital tunnel syndrome ??Diverticular disease of colon ??Gastric polyp ??Gastroesophageal reflux disease ??H/O: poliomyelitis ??Hx of hysterectomy ??Hx of non-ST elevation myocardial infarction (NSTEMI) ??Hyperlipidemia ??Hypertensive disorder ??Insomnia ??Iron deficiency anemia ??Late effects of poliomyelitis ??LBBB (left bundle branch block) ??Left bundle branch hemiblock ??Long-term current use of drug therapy ??Low back pain ??Muscle weakness ??Myositis ??Old myocardial infarction ??Osteopenia ??Pain in limb ??Pain in right arm ??Pedal edema ??Prolapse of vaginal vault after hysterectomy ??Spasm ??Type 2 diabetes mellitus with hyperglycemia Historical ?Menopausal symptom Procedure/Surgical History ???Colonoscopy through stoma; with [...] coronary angiography and ventriculography (not to include [place]-Maxi catheter) ?? Medications ??!-DuoNeb, 3 mL, Inhale, QID RT ??albuterol 90 mcg/inh aerosol inhaler, 2.5 mg, Inhale, every 2 hr RT, PRN ??amLODIPine 5 mg oral tablet, 5 mg= 1 tab, Oral, Daily ??aspirin 81 mg oral delayed release tablet, 81 mg= 1 tab, Oral, Daily ??budesonide 0.5 mg/2 mL inhalation suspension, 0.5 mg= 2 mL, NEB, BID RT ??Co Q-10, 100 mg, Oral, Daily ??enoxaparin 40 mg/0.4 mL injectable solution, 40 mg= 0.4 mL, Subcutaneous, every night at bedtime ??insulin lispro 100 units/mL injectable solution, Sensitive Scale, Subcutaneous, QID(ACHS) ??ipratropium-albuterol 0.5 mg-2.5 mg/3 mL inhalation solution, 3 mL, Inhale, every 4 hr RT, PRN ??Lantus 100 units/mL subcutaneous solution, 10 units, Subcutaneous, every morning ??LORazepam 0.5 mg oral tablet, 0.5 mg= 1 tab, Oral, QID, PRN ??potassium chloride 20 mEq oral tablet, extended release, 20 mEq= 1 tab, Oral, BID ??rosuvastatin 10 mg oral tablet, 10 mg= 1 tab, Oral, every night at bedtime ??Senna-Time 8.6 mg oral tablet, 17.2 mg= 2 tab, Oral, every night at bedtime, PRN ??sertraline 25 mg oral tablet, 25 mg= 1 tab, Oral, Daily ??Tamiflu 30 mg oral capsule, 30 mg= 1 cap, Oral, Daily ??Vitamin D with Minerals oral tablet, 2 tab, Oral, Daily ??Vitamin D3 2000 intl units oral capsule, 50 mcg= 1 cap, Oral, Daily ??zolpidem 10 mg oral tablet, 10 mg= 1 tab, Oral, every night at bedtime, PRN Allergies amoxicillin-clavulanate atenolol lisinopril thiazide diuretics [2] [1]??Office Visit Note; Stan Walker MD 02/20/2023 12:19 EDT [2]??Office Visit Note; Stan Walker MD 02/20/2023 12:19 EDT Electronically Signed on 03/03/23 03:19 PM Farida Villa Electronically Signed on 03/04/23 07:42 AM Stan Walker MD * Stan Walker MD: PERFORM Event Display: History and Physical Authored Date: Patient seen in preoperative hold no change address health status H&P updated Electronically Signed on 03/04/23 10:24 AM Stan Walker MD Patient Care team information Care Team Personnel Name: Mary Gaspar WEB CONSULTANT Position: PowerChart View Only Member Role: Primary Care Physician Address: Address: [address] [place] [address]- Care Team Related Persons Name: NATHAN DUTTA Address: Home [address] [place] [phone]
--- OUTSIDE RECORDS SUMMARY | 2023-05-23 10:48 | XMS_ITS | Continuity of Care Document ---
Author Name Unknown Organization [facility] Address [address] [place] [address] Encounter [facility] FIN NBR [id number] Date(s): 03/14/22 - 03/14/22 [facility] [address], [place] [address] Discharge Disposition: Home or Self Care Attending Physician: Donal Leos DO Admitting Physician: Donal Leos DO Allergies, Adverse Reactions, [...] of right hip joint 12/03/21 Completed Results Radiology Reports * Exam Date Time Procedure Performing Provider Status 03/14/22 11:32 AM XR Hip 2-3 Views w/A P Pelvis Right DomainUser, Generated; Auth (Verified) Notes: (XR Hip 2-3 Views w/AP Pelvis Right) Reason For Exam: s/p R SULLY XR Hip 2-3 Views w/AP Pelvis Right EXAM DESCRIPTION: XR Hip 2-3 Views w/AP Pelvis Right 03/14/2022 INDICATION: S/P R SULLY TECHNIQUE: Pelvis and right hip, three views COMPARISON: 01/16/2022 IMPRESSION: Status post right hip arthroplasty with stable satisfactory appearance. No focal lytic or destructive changes to suggest loosening or infection. No acute fracture or dislocation. SI joints appear symmetric and pubic symphysis appears intact. Mild left hip arthritic changes with femoral head osteophyte formation as described previously. JOB #: [id number] Final Signed by: Stan Dasilva MD Signed (Electronic Signature): 03/14/2022 11:38 am Social History Social History Type Response Tobacco Current everyday tob acco user Tobacco Use:. Sex Unknown XR Pelvis and Hip - right Views * Stan Dasilva MD: VERIFY, VERIFY Event Display: Report EXAM DESCRIPTION: XR Hip 2-3 Views w/AP Pelvis Right 03/14/2022 INDICATION: S/P R SULLY TECHNIQUE: Pelvis and right hip, three views COMPARISON: 01/16/2022 IMPRESSION: Status post right hip arthroplasty with stable satisfactory appearance. No focal lytic or destructive changes to suggest loosening or infection. No acute fracture or dislocation. SI joints appear symmetric and pubic symphysis appears intact. Mild left hip arthritic changes with femoral head osteophyte formation as described previously. JOB #: [id number] Final Signed by: Stan Dasilva MD Signed (Electronic Signature): 03/14/2022 11:38 am
== END 2023-05-21 16:30 | disposition home or self-care (01) ==
LOC: NCHCN 16:29
PROVIDERS: PCP Nurse Practitioner Family; Visit Provider Nurse Practitioner Family
DX: E78.5 Hyperlipidemia, unspecified (principal)
CPT/HCPCS: 80061

== ENCOUNTER 2023-11-27 09:21 | Outpatient (CLI) | payer MEDICARE, BC, SELFPAY ==
--- NOTE | 2023-11-27 09:15 | RT.EKG_ITS ---
APPROVED REPORT Exam: Resting ECG Reason for Exam: cardiac evaluation Patient Location: O HR:70 bpm ECG Measurements Heart Rate 70 AXIS WA 177 P 19 QRSd 139 QRS -2 QT 416 T 158 QTc 449 Conclusion Sinus rhythm...normal P axis, V-rate 50- 99 Left bundle branch block...QRSd>120, broad/notched R
== END 2023-11-27 09:22 | disposition home or self-care (01) ==
LOC: DI.CARD 09:22
PROVIDERS: PCP Nurse Practitioner Family; Visit Provider Internal Medicine Cardiovascular Disease
DX: I50.9 Heart failure, unspecified (principal); I25.10 Atherosclerotic heart disease of native coronary artery without angina pectoris; R09.89 Other specified symptoms and signs involving the circulatory and respiratory systems; I44.7 Left bundle-branch block, unspecified
CPT/HCPCS: 93010

== ENCOUNTER → 2023-11-27 09:43 | Outpatient (BNVA) | payer MEDICARE, BC, SELFPAY | PROVIDERS: PCP Nurse Practitioner Family; Visit Provider Internal Medicine Cardiovascular Disease | DX: I25.10 Atherosclerotic heart disease of native coronary artery without angina pectoris (principal); I44.7 Left bundle-branch block, unspecified | CPT/HCPCS: 93005; 99213 ==

== ENCOUNTER 2024-01-20 18:48 | Outpatient (REF) | payer MEDICARE, BC, SELFPAY ==
[2024-01-20 20:28] LABS: ALT 27 U/L (14-59); AST 19 U/L (15-37); Albumin 3.8 g/dL (3.4-5.0); Alkaline Phosphatase 105 U/L (46-116); Anion Gap 10.8 mmol/L (3-11); BUN 43 mg/dL (7-18); Bilirubin, Total 0.68 mg/dL (0.2-1.0); CO2 23.2 mmol/L (21.0-32.0); CREATININE 1.1 mg/dL (0.55-1.02); Calcium 8.9 mg/dL (8.5-10.1); Chloride 105 mmol/L (98-107); Estimated GFR 54.06 (mL/min/1.73m2); Glucose 105 mg/dL (74-106); Potassium 3.6 mmol/L (3.5-5.1); Sodium 139 mmol/L (136-145); Total Protein 7.1 g/dL (6.4-8.2)
== END 2024-01-20 18:49 | disposition home or self-care (01) ==
LOC: NCHCN 18:48
PROVIDERS: PCP Nurse Practitioner Family; Visit Provider Nurse Practitioner Family
DX: N18.31 Chronic kidney disease, stage 3a (principal)
CPT/HCPCS: 80053

== ENCOUNTER 2024-08-30 12:30 | Outpatient (REF) | payer MEDICARE, BC, SELFPAY ==
[2024-08-30 19:20] LABS: ALT 28 U/L (14-59); AST 19 U/L (15-37); Albumin 4.1 g/dL (3.4-5.0); Alkaline Phosphatase 116 U/L (46-116); Anion Gap 10.6 mmol/L (3-11); BUN 30 mg/dL (7-18); CO2 24.4 mmol/L (21.0-32.0); CREATININE 1.1 mg/dL (0.55-1.02); Calcium 9.7 mg/dL (8.5-10.1); Chloride 108 mmol/L (98-107); Estimated GFR 53.72 (mL/min/1.73m2); Glucose 101 mg/dL (74-106); Potassium 4.5 mmol/L (3.5-5.1); Sodium 143 mmol/L (136-145); Total Protein 7.5 g/dL (6.4-8.2)
[2024-08-31 11:52] LABS: Calculated LDL 119 mg/dL (<100); Cholesterol 227 mg/dL (<200); HDL Cholesterol 83 mg/dL (>or=50); Triglyceride 128 mg/dL (<150)
== END 2024-08-30 12:31 | disposition home or self-care (01) ==
LOC: NCHCN 12:30
PROVIDERS: PCP Nurse Practitioner Family; Visit Provider Nurse Practitioner Family
DX: I25.10 Atherosclerotic heart disease of native coronary artery without angina pectoris (principal); N18.31 Chronic kidney disease, stage 3a
CPT/HCPCS: 80053; 80061

== ENCOUNTER 2025-03-09 17:36 | Outpatient (REF) | payer MEDICARE, BC, SELFPAY ==
[2025-03-09 20:33] LABS: Anion Gap 9.4 mmol/L (3-11); BUN 26 mg/dL (7-18); CO2 26.6 mmol/L (21.0-32.0); Calcium 9.0 mg/dL (8.5-10.1); Chloride 104 mmol/L (98-107); Glucose 108 mg/dL (74-106); Potassium 3.8 mmol/L (3.5-5.1); Sodium 140 mmol/L (136-145)
== END 2025-03-09 17:37 | disposition home or self-care (01) ==
LOC: NCHCN 17:36
PROVIDERS: PCP Nurse Practitioner Family; Visit Provider Nurse Practitioner Family
DX: N18.31 Chronic kidney disease, stage 3a (principal)
CPT/HCPCS: 80048

== ENCOUNTER 2025-03-22 03:20 | Outpatient (CLI) | payer MEDICARE, BC, SELFPAY ==
[2025-03-22] MEDS: Levalbuterol HFA 15 GM INH 4 PUFF IH (11:00)
[2025-03-22] MEDS: Inhaler, Assist Device 1 EACH MC (11:00)
--- NOTE | 2025-03-24 08:40 | W.PFT ---
Date of service: 03/22/25 Time of Service: 09:56 Pulmonary Function Test Result Indications: Chronic cough Impression 1. Good patient effort was noted. ATS standards for reproducibility were met. 2. Normal spirometry. 3. Following the administration of a bronchodilator there was not a significant response 4. TLC was normal. No evidence of restrictive lung disease 5. DLCO was normal indicating normal alveolar gas exchange
== END 2025-03-22 03:21 | disposition home or self-care (01) ==
LOC: RT 03:20
PROVIDERS: PCP Nurse Practitioner Family; Visit Provider Nurse Practitioner Family
DX: R05.3 Chronic cough (principal)
CPT/HCPCS: 94060; 94726; 94729